=== PATIENT | male | born 1945 | race Two or more races ===

== ENCOUNTER → 2017-05-15 | Outpatient (CLI) | payer MEDICARE, OTHER ==
--- NOTE | 2017-05-15 13:31 | RADIOLOGY REPORT (SQ) ---
EXAM DESCRIPTION: CT ABD/PELVIS COMBO COMPLETED DATE/TIME: 05/15/2017 10:01 am REASON FOR STUDY: HEMATURIA (R31.9) R31.9 HEMATURIA, UNSPECIFIED COMPARISON: None. TECHNIQUE: CT scan of the abdomen and pelvis performed with and without intravenous contrast, and wi thout oral contrast. Contrasted imaging performed helical scanning technique and dynamic intravenous contrast injection. Images reviewed with lung, soft tissue, and bone windows. Reconstructed coronal a nd sagittal MPR images reviewed. Delayed images for evaluation of the urinary system also acquired. A ll images stored on PACS. All CT scanners at this facility use dose modulation, iterative reconstruction, and/or weight based d osing when appropriate to reduce radiation dose to as low as reasonably achievable (ALARA). [facility]: Dose Right [facility]: CareDose [facility]: Dose Right [facility]: Teradose 4D [facility]: Audacious CONTRAST TYPE AND DOSE: contrast/concentration: Isovue 370.00 mg/ml; Total Contrast Delivered: 70.0 ml; Total Saline Delivered: 66.0 ml 70 cc Isovue 370- low osmolar. RENAL FUNCTION: Creatinine 1.1 RADIATION DOSE: Up-to-date CT equipment and radiation dose reduction techniques were employed. CTDIv ol: 9.0 mGy. DLP: 1851 mGy-cm. . LIMITATIONS: None. FINDINGS: NON-CONTRASTED IMAGING: Bilateral renal vascular calcification. No nephrolithiasis. No b ladder calcification POST-CONTRASTED IMAGING: LOWER CHEST: Emphysematous change. Pleural-based scar anteriorly left base. LIVER: Normal size. No masses. No dilated ducts. SPLEEN: Normal size. No focal lesions. PANCREAS: No masses. No significant calcifications. No adjacent inflammation or peripancreatic fluid collections. Pancreatic duct not dilated. GALLBLADDER: No identified stones by CT criteria. No inflammatory changes to suggest cholecystitis. ADRENAL GLANDS: No significant masses or asymmetry. RIGHT KIDNEY AND URETER: No solid masses. No significant calcifications. No hydronephrosis or hyd roureter. LEFT KIDNEY AND URETER: No solid masses. No significant calcifications. No hydronephrosis or hydr oureter. AORTA AND VESSELS: Status post trip plate repair knee is ago. Persistent opacified 3 cm left iliac a rtery aneurysm distal to the graft. Larger right iliac aneurysm bypass with the graft. RETROPERITONEUM: No retroperitoneal adenopathy, hemorrhage or masses. BOWEL AND PERITONEAL CAVITY: No masses or inflammatory changes. No free fluid or peritoneal masses. APPENDIX: Normal. PELVIS: No mass. No free fluid. Normal bladder. ABDOMINAL WALL: No masses. No hernias. BONES: No significant or acute findings. OTHER: No other significant finding. IMPRESSION: No significant renal or bladder pathology. Status post old to play bypass grafting. Pa tent left iliac artery aneurysm distal to the graft. Larger right iliac aneurysm bypass with the pre vious graft. TECHNICAL DOCUMENTATION: JOB ID: [id number] Quality ID # [id number]: Final reports with documentation of one or more dose reduction techniques (e.g., Au tomated exposure control, adjustment of the mA and/or kV according to patient size, use of iterative reconstruction technique) 2010 [employer]- All Rights Reserved
== END ==
LOC: RAD 09:09
PROVIDERS: ATTEND Urology
DX: R31.9 Hematuria, unspecified (principal)
CPT/HCPCS: 74178; 82565

== ENCOUNTER 2018-01-02 12:58 | Emergency (ER) | payer MEDICARE, OTHER ==
[2018-01-02] MEDS ORDERED: ASPIRIN 81 MG TABLET, CHEWABLE PO ONE (13:11)
[2018-01-02 13:31] LABS: ABSOLUTE BASOPHILS # (AUTO) 0.1 10^3/uL (0.0-0.2); ABSOLUTE EOSINOPHILS # (AUTO) 0.5 10^3/uL (0.0-0.6); ABSOLUTE MONOCYTES (AUTO) 0.5 10^3/uL (0.1-1.4); ABSOLUTE NEUT (AUTO) 3.4 10^3/uL (1.7-8.2); BASOPHILS % (AUTO) 1.1 % (0-2); EOSINOPHILS % (AUTO) 7.3 % (0-6); HEMOGLOBIN 13.7 g/dL (13.5-17.0); LYMPHOCYTES % (AUTO) 31.2 % (13-45); MEAN CORPUSCULAR HEMOGLOBIN 32.8 pg (27.0-33.4); MEAN CORPUSCULAR HGB CONC 34.3 g/dL (32.0-36.0); MEAN CORPUSCULAR VOLUME 96 fl (80-97); MONOCYTES % (AUTO) 8.2 % (3-13); PLATELET COUNT 121 10^3/uL (150-450); RED BLOOD COUNT 4.17 10^6/uL (4.35-5.55); RED CELL DISTRIBUTION WIDTH 13.5 % (11.5-14.0); SEGMENTED NEUTROPHILS % (AUTO) 52.2 % (42-78); TOTAL CELLS COUNTED % (AUTO) 100 %; WHITE BLOOD COUNT 6.5 10^3/uL (4.0-10.5)
[2018-01-02 13:53] LABS: ALANINE AMINOTRANSFERASE 37 U/L (21-72); ALBUMIN 4.4 g/dL (3.5-5.0); ALKALINE PHOSPHATASE 71 U/L (38-126); ANION GAP 10 (5-19); ASPARTATE AMINO TRANSFERASE 33 U/L (17-59); BILIRUBIN,DIRECT 0.4 mg/dL (0.0-0.4); BILIRUBIN,TOTAL 0.5 mg/dL (0.2-1.3); BLOOD UREA NITROGEN 33 mg/dL (7-20); CALCIUM 9.7 mg/dL (8.4-10.2); CARBON DIOXIDE 27 mmol/L (22-30); CHLORIDE 104 mmol/L (98-107); CREATINE KINASE 65 U/L (55-170); GLUCOSE 96 mg/dL (75-110); POTASSIUM 5.8 mmol/L (3.6-5.0); TOTAL PROTEIN 7.9 g/dL (6.3-8.2)
--- NOTE | 2018-01-02 14:03 | RADIOLOGY REPORT (SQ) ---
EXAM DESCRIPTION: CHEST SINGLE VIEW COMPLETED DATE/TIME: 01/02/2018 1:49 pm REASON FOR STUDY: cp COMPARISON: December 2013 EXAM PARAMETERS: NUMBER OF VIEWS: One view. TECHNIQUE: Single frontal radiographic view of the chest acquired. RADIATION DOSE: NA LIMITATIONS: None. FINDINGS: LUNGS AND PLEURA: No opacities, masses or pneumothorax. No pleural effusion. MEDIASTINUM AND HILAR STRUCTURES: No masses. Contour normal. HEART AND VASCULAR STRUCTURES: Cardiac silhouette is at the upper limits of normal in size and unchan ged in configuration. BONES: No acute findings. HARDWARE: Patient is status post median sternotomy. OTHER: No other significant finding. IMPRESSION: NO ACUTE RADIOGRAPHIC FINDING IN THE CHEST. TECHNICAL DOCUMENTATION: JOB ID: [id number] [employer]- All Rights Reserved Reading location - IP/workstation name: [email or web address]
[2018-01-02 14:15] LABS: CREATINE KINASE MB 1.28 ng/mL (<4.55); TROPONIN I 0.019 ng/mL
--- NOTE | 2018-01-02 14:31 | ER Document Report ---
ED Cardiac <WENDY MACIAS - Last Filed: 01/02/18 19:30> - General Mode of Arrival: Ambulatory Information source: Patient TRAVEL OUTSIDE OF THE [place]. 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 Patient states he saw his hospitality house supervisor approximately 1 week ago complaining of his heart intermittently stopping. Patient states he was then placed on a Holter Monitor and turned it in on 12/31/2017. Patient states he then received a phone call this morning and was directed to come to the emergency department, reporting he was told he needs a pacemaker. Patient is currently on Coumadin, Finasteride, and Flomax. Patient reports being instructed to stop Flomax due to having scheduled cataract surgery in January. (BRODIE JIMENEZ) - Related Data Allergies/Adverse Reactions: No Known Allergies Allergy (Unverified 10/25/11 12:13) Past Medical History - General Information source: Patient - Social History Smoking Status: Current Every Day Smoker Cigarette use (# per day): Yes - 12 cigs per day Chew tobacco use (# tins/day): - 30 Frequency of alcohol use: Social - 2-3 beers per week Drug Abuse: None Family History: CAD, Hypertension Patient has suicidal ideation: No Patient has homicidal ideation: No - Past Medical History Cardiac Medical History: Reports: Hx Coronary Artery Disease, Hx Hypercholesterolemia, Hx Hypertension Pulmonary Medical History: Reports: Hx COPD Musculoskeltal Medical History: Reports Hx Arthritis, Reports Hx Musculoskeletal Trauma Skin Medical History: Reports Hx Cellulitis, Reports Hx MRSA Traumatic Medical History: Reports: Hx Fractures Past Surgical History: Reports: Hx Cardiac Surgery - bypass, stents, mechanical valve, Hx Carotid Endarterectomy, Hx Cholecystectomy, Hx Coronary Artery Bypass Graft, Hx Orthopedic Surgery - left hip - Immunizations Immunizations up to date: Yes Hx Diphtheria, Pertussis, Tetanus Vaccination: Yes Hx Pneumococcal Vaccination: 08/06/10 <BRODIE JIMENEZ - Last Filed: 01/02/18 21:18> Review of Systems - Review of Systems Constitutional: No symptoms reported EENT: No symptoms reported Cardiovascular: See HPI Respiratory: No symptoms reported Gastrointestinal: No symptoms reported Genitourinary: No symptoms reported Male Genitourinary: No symptoms reported Musculoskeletal: No symptoms reported Skin: No symptoms reported Hematologic/Lymphatic: No symptoms reported Neurological/Psychological: No symptoms reported -: Yes All other systems reviewed and negative <BRODIE JIMENEZ - Last Filed: 01/02/18 21:18> Physical Exam - General General appearance: Appears well, Alert In distress: None - HEENT Head: Normocephalic, Atraumatic Eyes: Normal Conjunctiva: Normal Extraocular movements intact: Yes Pupils: PERRL Mucous membranes: Normal Neck: Normal. No: Carotid bruit - Respiratory Respiratory status: No respiratory distress Chest status: Nontender Breath sounds: Rhonchi - minimal amount of rhnochi with cough Chest palpation: Normal - Cardiovascular Rhythm: Bradycardia Heart sounds: Normal auscultation - mechanical click auscltated consistent with history Murmur: No Friction rub: No Gallop: None auscultated - Abdominal Inspection: Normal Distension: No distension Bowel sounds: Normal Tenderness: Nontender Organomegaly: No organomegaly - Back Back: Normal - Extremities General upper extremity: Normal ROM General lower extremity: Normal ROM. No: Edema - Neurological Neuro grossly intact: Yes Cognition: Normal Orientation: AAOx4 Ana M Coma Scale Eye Opening: Spontaneous [place] Coma Scale Verbal: Oriented Ana M Coma Scale Motor: Obeys Commands Ana M Coma Scale Total: 15 Speech: Normal - Psychological Associated symptoms: Normal affect, Normal mood - Skin Skin Temperature: Warm Skin Moisture: Dry Skin Color: Normal <BRODIE JIMENEZ - Last Filed: 01/02/18 21:18> - Vital signs Vitals: Resp 26 H 01/02/18 13:09 Course - Laboratory Result Diagrams: 01/02/18 13:15 01/02/18 13:15 - Diagnostic Test Radiology reviewed: Reports reviewed - Chest x-ray does not show acute process - EKG Interpretation by [place] EKG shows normal: Sinus rhythm, [place], Intervals, QRS Complexes, ST-T Waves Rate: Normal - 55 Rhythm: A.Flutter [place]/QRS: RBBB, LAHB/LAFB Voltage: Consistant with LVH When compared to previous EKG there are: Changes noted - Atrial flutter was not present for years ago <WENDY MACIAS - Last Filed: 01/02/18 19:30> - Laboratory Result Diagrams: 01/02/18 13:15 01/02/18 13:15 <BRODIE JIMENEZ - Last Filed: 01/02/18 21:18> - Re-evaluation Re-evalutation: 01/02/18 15:03 I discussed the case with Dr. Marques. He already talked with [facility] and Dr. Holguin and they are expecting a call for me to transfer the patient. The patient had a Holter monitor for 2 weeks because he had noted that he would have long pauses in his heartbeat based on hearing the valve clicking. The two-week monitor showed 292 episodes of pauses with the longest being 5.5 seconds. He was also noted to be in atrial flutter the entire time. Patient's potassium is 5.8 today, it was 5.64 years ago when he came in with an NSTEMI, and it was 5.36 years ago when he was seen here. Dr. Marques recommended to give the patient Kayexalate at this time. 01/02/18 15:16 The patient had an echocardiogram here in 2014 showing an EF of 51%. He does not take any diuretics. 01/02/18 15:17 Talk with [facility], and Dr. Willy Holguin will be the accepting on the Intal form and they will call back when they have a bed available. 01/02/18 16:29 The patient's INR is 1.94, he takes Coumadin 4 mg on Sunday and 8 mg today. He has not had today's dose. He will be given the Coumadin 8 mg evening dose now. 01/02/18 19:29 Transport is here for the patient. His vital signs have remained stable. He is anxious to get out of here and get to [place] to have his pacemaker and return back home. (WENDY MACIAS) - Vital Signs Vital signs: Temp Pulse Resp BP Pulse Ox 98.7 F 15 144/63 H 95 01/02/18 13:10 01/02/18 19:34 01/02/18 19:34 01/02/18 19:34 - Laboratory Laboratory results interpreted by me: 01/02/18 01/02/18 01/02/18 13:15 13:15 13:15 RBC 4.17 L Plt Count 121 L Eosinophils % 7.3 H PT 23.1 H Potassium 5.8 H BUN 33 H Creatinine 1.43 H Est GFR ( Amer) 59 L Est GFR (Non-Af Amer) 49 L Critical Care Note - Critical Care Note Total time excluding time spent on procedures (mins): 35 <WENDY MACIAS - Last Filed: 01/02/18 19:30> Discharge <WENDY MACIAS - Last Filed: 01/02/18 19:30> <BRODIE JIMENEZ - Last Filed: 01/02/18 21:18> - Discharge Clinical Impression: Asystole, Hyperkalemia Atrial flutter Qualifiers: Atrial flutter type: unspecified Qualified Code(s): I48.92 - Unspecified atrial flutter Condition: Stable Disposition: [facility] Scribe Attestation: 01/02/18 16:10 I personally performed the services described in the documentation, reviewed and edited the documentation which was dictated to the scribe in my presence, and it accurately records my words and actions. (WENDY MACIAS) Scribe Documentation - Scribe Written by Andresibe:: Azalia Vasquez, 01/02/2018 14:54 acting as scribe for :: Toya <BRODIE JIMENEZ - Last Filed: 01/02/18 21:18>
[2018-01-02 15:01] LABS: INTERNATIONAL RATION (INR) 1.94; PROTHROMBIN TIME 23.1 SEC (11.4-15.4)
[2018-01-02] MEDS ORDERED: SODIUM POLYSTYRENE SULFONATE 15 GM/60 ML PO ONE (15:06)
[2018-01-02] MEDS ORDERED: NORMAL SALINE 1000 ML 250 ML IV ONE (15:17)
[2018-01-02 16:11] VITALS: BP 144/63
[2018-01-02] MEDS ORDERED: WARFARIN SODIUM 1 MG TABLET PO ONE (16:28)
[2018-01-02] MEDS ORDERED: WARFARIN SODIUM 4 MG TABLET PO ONE (17:00)
--- NOTE | 2018-01-02 23:18 | EKG REPORT ---
SEVERITY:- ABNORMAL ECG - A-FLUTTER W/ VARIED AV BLOCK, A-RATE 217 VENTRICULAR PREMATURE COMPLEX RBBB AND LAFB LEFT VENTRICULAR HYPERTROPHY : Confirmed by: Lavern Bolanos 02-Jan-2018 23:17:31
== END 2018-01-02 19:34 | disposition short-term general hospital (02) ==
LOC: ER 12:58
DX: I46.9 Cardiac arrest, cause unspecified (principal); E87.5 Hyperkalemia; I48.92 Unspecified atrial flutter; R07.9 Chest pain, unspecified; F17.210 Nicotine dependence, cigarettes, uncomplicated; I25.10 Atherosclerotic heart disease of native coronary artery without angina pectoris; I10 Essential (primary) hypertension; J44.9 Chronic obstructive pulmonary disease, unspecified; I25.2 Old myocardial infarction; Z79.02 Long term (current) use of antithrombotics/antiplatelets
CPT/HCPCS: 93005; 99291; 96360; 96361; 36415; 82553; 82550; 85025; 85610; 80053; 84484; 71045; 93010; A9270 ×2; J7030; J3490

== ENCOUNTER 2018-01-05 10:34 | Emergency (ER) | payer MEDICARE, OTHER ==
[2018-01-05] MEDS ORDERED: ASPIRIN 81 MG TABLET, CHEWABLE PO ONE (11:00)
--- NOTE | 2018-01-05 11:00 | ER Document Report ---
ED Dizziness/Weakness - General Mode of Arrival: Ambulatory Information source: Patient TRAVEL OUTSIDE OF THE [place] IN LAST 30 DAYS: No <ANDREA MONTEZ - Last Filed: 01/05/18 19:37> <PETTY PRO - Last Filed: 01/05/18 19:55> - General Chief Complaint: Weakness Stated Complaint: WEAKNESS Time Seen by Provider: 01/05/18 10:47 Notes: Patient is a 72 year old male that presents to the emergency department today with complaints of generalized weakness beginning yesterday. Patient was discharged from [facility] yesterday after being cardioverted for atrial flutter. Patient states on discharge he felt fine but as the night went on he began to feel generally weak. Patient states he used a cane to walk because he was wobbly when standing. Patient states when he woke up this morning he was lightheaded with a blood pressure of 90/70. Patient complains of blurry vision which he states is chronic. Patient denies any abdominal pain , numbness, tingling, focal neurological deficits, chest pain, shortness of breath, headaches, sore throat, earaches, nausea, or vomiting. (ANDREA MONTEZ) - Related Data Allergies/Adverse Reactions: No Known Allergies Allergy (Unverified 10/25/11 12:13) Past Medical History - General Information source: Patient - Social History Smoking Status: Current Every Day Smoker Cigarette use (# per day): Yes Frequency of alcohol use: Social Drug Abuse: None Lives with: Family Family History: CAD, Hypertension Patient has suicidal ideation: No Patient has homicidal ideation: No - Past Medical History Cardiac Medical History: Reports: Hx Coronary Artery Disease, Hx Hypercholesterolemia, Hx Hypertension Pulmonary Medical History: Reports: Hx COPD Musculoskeltal Medical History: Reports Hx Arthritis, Reports Hx Musculoskeletal Trauma Skin Medical History: Reports Hx Cellulitis, Reports Hx MRSA Traumatic Medical History: Reports: Hx Fractures Past Surgical History: Reports: Hx Cardiac Surgery - bypass, stents, mechanical valve, Hx Carotid Endarterectomy, Hx Cholecystectomy, Hx Coronary Artery Bypass Graft, Hx Orthopedic Surgery - left hip - Immunizations Immunizations up to date: Yes Hx Diphtheria, Pertussis, Tetanus Vaccination: Yes Hx Pneumococcal Vaccination: 08/06/10 <ANDREA MONTEZ - Last Filed: 01/05/18 19:37> - Social History Cigarette use (# per day): Yes - 1ppd <SALMAROCIOPETTY - Last Filed: 01/05/18 19:55> Review of Systems - Review of Systems Constitutional: See HPI, Weakness - generalized EENT: denies: Ear pain, Throat pain Cardiovascular: denies: Chest pain Respiratory: denies: Short of breath Gastrointestinal: denies: Abdominal pain, Nausea, Vomiting Genitourinary: No symptoms reported Male Genitourinary: No symptoms reported Musculoskeletal: No symptoms reported Skin: No symptoms reported Hematologic/Lymphatic: No symptoms reported Neurological/Psychological: denies: Headaches, Numbness, Tingling -: Yes All other systems reviewed and negative <ANDREA MONTEZ - Last Filed: 01/05/18 19:37> Physical Exam <ANDREA MONTEZ - Last Filed: 01/05/18 19:37> <PETTY PRO - Last Filed: 01/05/18 19:55> - Vital signs Vitals: BP Pulse Ox 129/64 H 98 01/05/18 10:38 01/05/18 10:38 - Notes Notes: PHYSICAL EXAM GENERAL: Alert, interacts well. No acute distress. HEAD: Normocephalic, atraumatic. EYES: Pupils equal, round, and reactive to light. Extraocular movements intact. ENT: Oral mucosa moist, tongue midline. NECK: Full range of motion. Supple. Trachea midline. LUNGS: Clear to auscultation bilaterally, no wheezes, rales, or rhonchi. No respiratory distress. HEART: Regular rate and rhythm. No murmurs, gallops, or rubs. Audible mechanical click consistent with history of artificial valve. ABDOMEN: Soft, non-tender. Non-distended. Bowel sounds present in all 4 quadrants. No guarding, rigidity, or rebound. Scarring consistent with surgical history. EXTREMITIES: Moves all 4 extremities spontaneously. No edema, radial and dorsalis pedis pulses 2/4 bilaterally. No cyanosis. NEUROLOGICAL: Alert and oriented x3. Normal speech. PSYCH: Normal affect, normal mood. SKIN: Warm, dry, normal turgor. No rashes or lesions noted. (ANDREA MONTEZ) Course - Laboratory Result Diagrams: 01/05/18 10:04 01/05/18 16:35 <ANDREA MONTEZ - Last Filed: 01/05/18 19:37> - Laboratory Result Diagrams: 01/05/18 10:04 01/05/18 16:35 <PETTY PRO - Last Filed: 01/05/18 19:55> - Re-evaluation Re-evalutation: 01/05/18 19:43 CBC shows slightly low platelets at 121, INR is slightly subtherapeutic at 2.06 for the mechanical valve, potassium mildly elevated at 5.2, there is acute on chronic renal failure with a BUN of 36 and creatinine of 2.65, calcium slightly elevated at 10.5, indeterminate troponin at 0.104, urinalysis shows moderate leukocyte esterase but no bacteria. There are 3 squamous epithelial cells. Doubt urinary tract infection at this time. This will be sent for culture. Discussed with patient that since he was recently cardioverted the indeterminate troponin could be a leak from the cardioversion and I agreed to hydrate him to see if the renal function improved or if the troponin improved however when these labs were repeated 6 hours later the patient had essentially unchanged renal function and his troponin had quadrupled it was now positive at 0.44. EKG remains nonischemic. I did call and discuss this patient with Dr. Schofield at [facility] who agrees to accept the patient to his service as a non-STEMI. Patient is generally hemodynamically stable, he does become somewhat hypotensive when he gets up and walks around, he is encouraged to stay seated. He is remained chest pain-free this entire time. 01/05/18 19:43 01/05/18 19:53 Potassium decreased with sodium as well. (PETTY PRO) - Vital Signs Vital signs: Temp Pulse Resp BP Pulse Ox 97.9 F 81 24 H 119/60 96 01/05/18 18:08 01/05/18 10:46 01/05/18 19:01 01/05/18 19:01 01/05/18 19:01 - Laboratory Laboratory results interpreted by me: 01/05/18 01/05/18 01/05/18 10:04 10:04 10:04 Plt Count 121 L PT 24.2 H Potassium 5.2 H BUN 36 H Creatinine 2.65 H Est GFR ( Amer) 29 L Est GFR (Non-Af Amer) 24 L Glucose 167 H Calcium 10.5 H Direct Bilirubin 0.5 H Total Protein 8.3 H Urine Protein Urine Blood Urine Urobilinogen Ur Leukocyte Esterase 01/05/18 01/05/18 15:48 16:35 Plt Count PT Potassium BUN 36 H Creatinine 2.34 H Est GFR ( Amer) 33 L Est GFR (Non-Af Amer) 28 L Glucose 136 H Calcium Direct Bilirubin Total Protein Urine Protein 30 H Urine Blood SMALL H Urine Urobilinogen 2.0 H Ur Leukocyte Esterase MODERATE H - EKG Interpretation by Me Additional EKG results interpreted by me: 01/05/18 19:51 Initial EKG shows sinus rhythm with multiple PVCs, right bundle branch block, left anterior hemiblock, LVH, no ST segment elevations, there are ST segment depressions in V3, inverted T waves in 1, aVL, V2 which are unchanged from prior recent EKG Repeat EKG shows sinus rhythm at a rate of 95, no PVCs, left anterior hemiblock , right bundle branch block, unchanged T-wave inversions in 1, aVL, V1 through the 3, no ST segment depressions remain per my interpretation. (PETTY PRO) Discharge <ANDREA MONTEZ - Last Filed: 01/05/18 19:37> <PETTY PRO - Last Filed: 01/05/18 19:55> - Discharge Clinical Impression: NSTEMI (non-ST elevated myocardial infarction), Hyperkalemia Acute on chronic renal failure Qualifiers: Acute renal failure type: unspecified Chronic kidney disease stage: stage 3 ( moderate) Qualified Code(s): N17.9 - Acute kidney failure, unspecified; N18.3 - Chronic kidney disease, stage 3 (moderate); N18.3 - Chronic kidney disease, stage 3 (moderate) Condition: Fair Disposition: [facility] Forms: Special Work Note Referrals: PAULINE RIVERA MD [Primary Care Provider] - Follow up as needed Scribe Attestation: 01/05/18 19:52 I personally performed the services described in the documentation, reviewed and edited the documentation which was dictated to the scribe in my presence, and it accurately records my words and actions. (PETTY PRO) Scribe Documentation - Scribe Written by Scribe:: Azalia Hernandez, 01/05/2018 1324 acting as scribe for Dr.:: Ramsey <ANDREA MONTEZ - Last Filed: 01/05/18 19:37>
[2018-01-05 11:19] LABS: INTERNATIONAL RATION (INR) 2.06; PROTHROMBIN TIME 24.2 SEC (11.4-15.4)
--- NOTE | 2018-01-05 11:24 | RADIOLOGY REPORT (SQ) ---
EXAM DESCRIPTION: CHEST SINGLE VIEW COMPLETED DATE/TIME: 01/05/2018 11:10 am REASON FOR STUDY: weakness COMPARISON: 01/02/2018 NUMBER OF VIEWS: One view. TECHNIQUE: Single frontal radiographic view of the chest acquired. LIMITATIONS: None. FINDINGS: LUNGS AND PLEURA: No new opacities, masses or pneumothorax. No pleural effusion. Attenuate d blood vessels and flattened ede-diaphragms. MEDIASTINUM AND HILAR STRUCTURES: No masses. Contour normal. HEART AND VASCULAR STRUCTURES: Heart stable in size. Normal vasculature. BONES: No acute findings. HARDWARE: Stable. OTHER: No other significant finding. IMPRESSION: COPD. NO ACUTE RADIOGRAPHIC FINDING IN THE CHEST OR SIGNIFICANT CHANGE FROM PRIOR STUDY . TECHNICAL DOCUMENTATION: JOB ID: [id number] [employer]- All Rights Reserved Reading location - IP/workstation name: [email or web address]
[2018-01-05 11:26] LABS: ABSOLUTE BASOPHILS # (AUTO) 0.1 10^3/uL (0.0-0.2); ABSOLUTE EOSINOPHILS # (AUTO) 0.2 10^3/uL (0.0-0.6); ABSOLUTE LYMPHOCYTES (AUTO) 1.5 10^3/uL (0.5-4.7); ABSOLUTE MONOCYTES (AUTO) 0.5 10^3/uL (0.1-1.4); ABSOLUTE NEUT (AUTO) 4.9 10^3/uL (1.7-8.2); BASOPHILS % (AUTO) 0.9 % (0-2); EOSINOPHILS % (AUTO) 2.2 % (0-6); HEMATOCRIT 43.5 % (37.9-51.0); HEMOGLOBIN 14.9 g/dL (13.5-17.0); LYMPHOCYTES % (AUTO) 21.1 % (13-45); MEAN CORPUSCULAR HEMOGLOBIN 32.5 pg (27.0-33.4); MEAN CORPUSCULAR HGB CONC 34.1 g/dL (32.0-36.0); MEAN CORPUSCULAR VOLUME 95 fl (80-97); MONOCYTES % (AUTO) 7.1 % (3-13); PLATELET COUNT 121 10^3/uL (150-450); RED BLOOD COUNT 4.58 10^6/uL (4.35-5.55); RED CELL DISTRIBUTION WIDTH 13.3 % (11.5-14.0); SEGMENTED NEUTROPHILS % (AUTO) 68.7 % (42-78); TOTAL CELLS COUNTED % (AUTO) 100 %; WHITE BLOOD COUNT 7.1 10^3/uL (4.0-10.5)
[2018-01-05 12:14] LABS: ALANINE AMINOTRANSFERASE 34 U/L (21-72); ALBUMIN 4.7 g/dL (3.5-5.0); ALKALINE PHOSPHATASE 79 U/L (38-126); ANION GAP 16 (5-19); ASPARTATE AMINO TRANSFERASE 36 U/L (17-59); BILIRUBIN,DIRECT 0.5 mg/dL (0.0-0.4); BILIRUBIN,TOTAL 0.7 mg/dL (0.2-1.3); BLOOD UREA NITROGEN 36 mg/dL (7-20); CALCIUM 10.5 mg/dL (8.4-10.2); CARBON DIOXIDE 24 mmol/L (22-30); CHLORIDE 101 mmol/L (98-107); CREATINE KINASE 83 U/L (55-170); GLUCOSE 167 mg/dL (75-110); POTASSIUM 5.2 mmol/L (3.6-5.0); SODIUM 141.3 mmol/L (137-145); TOTAL PROTEIN 8.3 g/dL (6.3-8.2)
[2018-01-05 12:25] LABS: CREATINE KINASE MB 2.44 ng/mL (<4.55)
[2018-01-05 12:30] LABS: TROPONIN I 0.104 ng/mL
[2018-01-05] MEDS ORDERED: NORMAL SALINE 1000 ML 1,000 ML IV ONE (13:03)
[2018-01-05 16:46] LABS: AMORPHOUS SEDIMENT,URINE TRACE /HPF; APPEARANCE,URINE CLOUDY; BILIRUBIN,URINE NEGATIVE (NEGATIVE); COLOR,URINE AMBER; GLUCOSE, URINE NEGATIVE (NEGATIVE); KETONES,URINE NEGATIVE (NEGATIVE); LEUKOCYTE ESTERASE,URINE MODERATE (NEGATIVE); NITRITE,URINE NEGATIVE (NEGATIVE); PROTEIN,URINE 30 mg/dL (NEGATIVE); URINE SPECIFIC GRAVITY 1.018
[2018-01-05 17:26] LABS: ANION GAP 14 (5-19); BLOOD UREA NITROGEN 36 mg/dL (7-20); CALCIUM 9.5 mg/dL (8.4-10.2); CARBON DIOXIDE 26 mmol/L (22-30); CHLORIDE 103 mmol/L (98-107); GLUCOSE 136 mg/dL (75-110); POTASSIUM 4.5 mmol/L (3.6-5.0); SODIUM 143.2 mmol/L (137-145)
--- NOTE | 2018-01-05 17:34 | EKG REPORT ---
SEVERITY:- ABNORMAL ECG - A FIB RIGHT BUNDLE BRANCH BLOCK LVH WITH IVCD AND SECONDARY REPOL ABNRM : Confirmed by: Lavern Bolanos 05-Jan-2018 17:33:56
[2018-01-05 19:12] VITALS: BP 119/60
[2018-01-05] MEDS ORDERED: ATORVASTATIN CALCIUM 20 MG TABLET PO ONE (20:09)
[2018-01-05] MEDS ORDERED: LISINOPRIL 10 MG TABLET PO ONE (20:10)
[2018-01-05] MEDS ORDERED: PANTOPRAZOLE SODIUM 40 MG VIAL IV ONE (20:11)
[2018-01-05] MEDS ORDERED: MELATONIN 3 MG TABLET PO ONE (20:12)
--- NOTE | 2018-01-06 08:27 | EKG REPORT ---
SEVERITY:- ABNORMAL ECG - SINUS RHYTHM RIGHT BUNDLE BRANCH BLOCK LVH WITH IVCD AND SECONDARY REPOL ABNRM : Confirmed by: Lavern Bolanos 06-Jan-2018 08:26:12
== END 2018-01-05 22:10 | disposition short-term general hospital (02) ==
LOC: ER 10:34
DX: I21.4 Non-ST elevation (NSTEMI) myocardial infarction (principal); E87.5 Hyperkalemia; I12.9 Hypertensive chronic kidney disease with stage 1 through stage 4 chronic kidney disease, or unspecified chronic kidney disease; N18.3 Chronic kidney disease, stage 3 (moderate); N17.9 Acute kidney failure, unspecified; I45.10 Unspecified right bundle-branch block; R53.1 Weakness; R42 Dizziness and giddiness; H53.8 Other visual disturbances; I25.10 Atherosclerotic heart disease of native coronary artery without angina pectoris; J44.9 Chronic obstructive pulmonary disease, unspecified; F17.210 Nicotine dependence, cigarettes, uncomplicated; Z98.890 Other specified postprocedural states; Z95.1 Presence of aortocoronary bypass graft; Z95.2 Presence of prosthetic heart valve; I49.3 Ventricular premature depolarization
CPT/HCPCS: 93005; 99285; 96361; 96374; 36415; 87086; 82553; 82550; 85025; 85610; 80048; 80053; 81001; 84484; 71045; 93010; A9270 ×2; C9113; J7030; S0164

== ENCOUNTER 2018-01-23 10:26 | Day surgery (SDC) | payer MEDICARE, OTHER ==
[~2018-01-23 10:26] MED LIST: BESIFLOXACIN HCL 0.6% OPH SUSP 5 ML BOTTLE OD PRN; CHONDR SU A NA/HYALUR INTRAOC KIT (SURGICARE) ONE; CYCLOPENTOLATE 0.2%/PHENYLEPHRINE 1% OPH SOLN 2 ML OD PRN; EPINEPHRINE INJ/PF 1 MG/1 ML AMPULE ONE; KETOROLAC TROMETHAMINE 0.45% 4 DROP/0.4 ML DROPERETTE OD PRN; LIDOCAINE 1% INJ-PF (10 MG/ML) 30 ML SDV ONE; TETRACAINE HCL 0.5% OPH SOLN 0.6 ML DROPERETTE OD PRN; TOBRAMYCIN SULFATE/DEXAMETH OPH OINTMENT 3.5 GM ONE; TROPICAMIDE 1% OPH SOLN 3 ML OD PRN
[2018-01-23] MEDS ORDERED: MIDAZOLAM 2 MG/2 ML INJ ONE (10:39)
[2018-01-23] MEDS: TETRACAINE HCL 0.5% OPH SOLN 0.6 ML DROPERETTE OD PRN ×3 (11:14→11:54)
[2018-01-23] MEDS: CYCLOPENTOLATE 0.2%/PHENYLEPHRINE 1% OPH SOLN 2 ML OD PRN ×3 (11:15→11:38)
[2018-01-23] MEDS: TROPICAMIDE 1% OPH SOLN 3 ML OD PRN ×3 (11:15→11:38)
[2018-01-23] MEDS: BESIFLOXACIN HCL 0.6% OPH SUSP 5 ML BOTTLE OD PRN ×3 (11:16→12:22)
[2018-01-23] MEDS ORDERED: CHONDR SU A NA/HYALUR SOD 0.5 ML DISP.SYRIN ONE (13:55)
== END 2018-01-23 13:07 | disposition home or self-care (01) ==
LOC: SC 10:26
PROVIDERS: ATTEND Ophthalmology
DX: H25.11 Age-related nuclear cataract, right eye (principal); H40.1111 Primary open-angle glaucoma, right eye, mild stage; F17.210 Nicotine dependence, cigarettes, uncomplicated; I10 Essential (primary) hypertension; E03.9 Hypothyroidism, unspecified; M19.90 Unspecified osteoarthritis, unspecified site; J44.9 Chronic obstructive pulmonary disease, unspecified; K21.9 Gastro-esophageal reflux disease without esophagitis; I48.91 Unspecified atrial fibrillation; Z79.01 Long term (current) use of anticoagulants; Z79.899 Other long term (current) drug therapy; Z79.51 Long term (current) use of inhaled steroids; Z79.84 Long term (current) use of oral hypoglycemic drugs
CPT/HCPCS: 0191T; 66984; 142; C1783; J0171; J2250; J3490; V2630

== ENCOUNTER 2018-01-28 08:17 | Emergency (ER) | payer MEDICARE, OTHER ==
[2018-01-28 09:08] LABS: ABSOLUTE BASOPHILS # (AUTO) 0.1 10^3/uL (0.0-0.2); ABSOLUTE EOSINOPHILS # (AUTO) 0.3 10^3/uL (0.0-0.6); ABSOLUTE LYMPHOCYTES (AUTO) 1.6 10^3/uL (0.5-4.7); ABSOLUTE MONOCYTES (AUTO) 0.5 10^3/uL (0.1-1.4); ABSOLUTE NEUT (AUTO) 4.1 10^3/uL (1.7-8.2); HEMATOCRIT 35.8 % (37.9-51.0); HEMOGLOBIN 12.4 g/dL (13.5-17.0); LYMPHOCYTES % (AUTO) 24.4 % (13-45); MEAN CORPUSCULAR HEMOGLOBIN 32.9 pg (27.0-33.4); MEAN CORPUSCULAR HGB CONC 34.6 g/dL (32.0-36.0); MEAN CORPUSCULAR VOLUME 95 fl (80-97); MONOCYTES % (AUTO) 8.1 % (3-13); PLATELET COUNT 133 10^3/uL (150-450); RED BLOOD COUNT 3.77 10^6/uL (4.35-5.55); RED CELL DISTRIBUTION WIDTH 13.5 % (11.5-14.0); SEGMENTED NEUTROPHILS % (AUTO) 62.5 % (42-78); TOTAL CELLS COUNTED % (AUTO) 100 %; WHITE BLOOD COUNT 6.6 10^3/uL (4.0-10.5)
[2018-01-28 09:15] LABS: INTERNATIONAL RATION (INR) 1.57; PROTHROMBIN TIME 19.5 SEC (11.4-15.4)
[2018-01-28 09:24] LABS: ALANINE AMINOTRANSFERASE 48 U/L (21-72); ALBUMIN 3.7 g/dL (3.5-5.0); ALKALINE PHOSPHATASE 67 U/L (38-126); ANION GAP 8 (5-19); ASPARTATE AMINO TRANSFERASE 42 U/L (17-59); BILIRUBIN,DIRECT 0.4 mg/dL (0.0-0.4); BILIRUBIN,TOTAL 0.6 mg/dL (0.2-1.3); BLOOD UREA NITROGEN 25 mg/dL (7-20); CALCIUM 9.3 mg/dL (8.4-10.2); CARBON DIOXIDE 26 mmol/L (22-30); CHLORIDE 105 mmol/L (98-107); GLUCOSE 103 mg/dL (75-110); POTASSIUM 4.9 mmol/L (3.6-5.0); SODIUM 138.5 mmol/L (137-145); TOTAL PROTEIN 6.7 g/dL (6.3-8.2)
[2018-01-28 09:47] VITALS: BP 103/53
--- NOTE | 2018-01-28 10:27 | ER Document Report ---
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 Daughter living with him at this time. No head injury or headache. no chest pain, sob, or abdominal pain. NO fever or chills. PCP: dr campbell has appt at 2 pm, today. Tetanus is current. Associated Symptoms: None Exacerbated by: Denies Relieved by: Denies Similar symptoms previously: Yes Recently seen / treated by doctor: No - ROS ROS below otherwise negative: Yes Systems Reviewed and Negative: Yes All other systems reviewed and negative - DERM Skin Color: Normal Past Medical History - General Information source: Patient, Relative - daughter - Social History Smoking Status: Current Every Day Smoker Frequency of alcohol use: Occasional Drug Abuse: None Lives with: Family - daghter Family History: CAD, Hypertension Patient has suicidal ideation: No Patient has homicidal ideation: No - Past Medical History Cardiac Medical History: Reports: Hx Coronary Artery Disease, Hx Hypercholesterolemia, Hx Hypertension Pulmonary Medical History: Reports: Hx COPD Renal/ Medical History: Denies: Hx Peritoneal Dialysis Musculoskeltal Medical History: Reports Hx Arthritis, Reports Hx Musculoskeletal Trauma Skin Medical History: Reports Hx Cellulitis, Reports Hx MRSA Traumatic Medical History: Reports: Hx Fractures Past Surgical History: Reports: Hx Cardiac Surgery - bypass, stents, mechanical valve, Hx Carotid Endarterectomy, Hx Cholecystectomy, Hx Coronary Artery Bypass Graft, Hx Open Heart Surgery - 1998 VALVE REPLACEMENT, Hx Orthopedic Surgery - left hip - Immunizations Immunizations up to date: Yes Hx Diphtheria, Pertussis, Tetanus Vaccination: Yes Hx Pneumococcal Vaccination: 08/06/10 Vertical Provider Document - CONSTITUTIONAL Agree With Documented VS: Yes Exam Limitations: No Limitations General Appearance: No Apparent Distress - INFECTION CONTROL TRAVEL OUTSIDE OF THE [place] IN LAST 30 DAYS: No - HEENT Notes: top endentulous, lower teeth stable. - NECK Neck: Supple - non tender - RESPIRATORY Respiratory: Breath Sounds Normal, No Respiratory Distress - CARDIOVASCULAR Cardiovascular: Regular Rate, Regular Rhythm - GI/ABDOMEN Gastrointestinal: Abdomen Soft, Abdomen Non-Tender, No Organomegaly - MUSCULOSKELETAL/EXTREMETIES Musculoskeletal/Extremeties: MAEW - NEURO Level of Consciousness: Awake, Alert - DERM Integumentary: Laceration - 1.5 cm full thickness with partial healing, wound edges approximated, washed with soap and water, steri strips place Course - Re-evaluation Re-evalutation: 01/28/18 10:26 Labs BUN is 25 creatinine is back down to normal range 1.17. Liver enzymes are normal. CBC is normal. Glucose is 103. INR is 1.57 but his daughter said that it was 2.2 the other day which would be within normal limits for him. The EKG shows first-degree AV block, with PAC. - Vital Signs Vital signs: Temp Pulse Resp BP Pulse Ox 97.2 F 81 103/53 L 100 01/28/18 09:04 01/28/18 09:44 01/28/18 09:44 01/28/18 09:44 - Laboratory Result Diagrams: 01/28/18 08:48 01/28/18 08:48 Laboratory results interpreted by me: 01/28/18 01/28/18 01/28/18 08:48 08:48 08:48 RBC 3.77 L Hgb 12.4 L Hct 35.8 L Plt Count 133 L PT 19.5 H BUN 25 H Discharge - Discharge Clinical Impression: Cut of chin Condition: Good Disposition: HOME, SELF-CARE Instructions: Antibiotic Ointment Protection ([facility]), Care of Steri-Strip Closure ([facility]) Additional Instructions: Keep the Steri-Strips clean and dry The wound will heal Bacitracin See Dr. Campbell for follow-up tomorrow. Referrals: TATIANA CAMPBELL DO [Primary Care Provider] - Follow up tomorrow
--- NOTE | 2018-01-28 12:35 | EKG REPORT ---
SEVERITY:- ABNORMAL ECG - SINUS RHYTHM .MOST LIKELY .BASELINE ARTIFACT.REPEAT EKG. VENTRICULAR PREMATURE COMPLEX FIRST DEGREE AV BLOCK IVCD, CONSIDER ATYPICAL RBBB LVH WITH IVCD AND SECONDARY REPOL ABNRM : Confirmed by: Jeanie Medina MD 28-Jan-2018 12:35:08
== END 2018-01-28 10:40 | disposition home or self-care (01) ==
LOC: ER 08:17
DX: S01.81XA Laceration without foreign body of other part of head, initial encounter (principal); W22.03XA Walked into furniture, initial encounter; I49.1 Atrial premature depolarization; I44.0 Atrioventricular block, first degree; I25.10 Atherosclerotic heart disease of native coronary artery without angina pectoris; I10 Essential (primary) hypertension; J44.9 Chronic obstructive pulmonary disease, unspecified; F17.200 Nicotine dependence, unspecified, uncomplicated; Z95.1 Presence of aortocoronary bypass graft; Z95.5 Presence of coronary angioplasty implant and graft; Z95.2 Presence of prosthetic heart valve
CPT/HCPCS: 36415; 80053; 83735; 85025; 85610; 93005; 93010; 99283

== ENCOUNTER 2018-02-13 11:23 | Day surgery (SDC) | payer MEDICARE, OTHER ==
[~2018-02-13 11:23] MED LIST changes: -BESIFLOXACIN HCL 0.6% OPH SUSP 5 ML BOTTLE OD PRN; -CHONDR SU A NA/HYALUR INTRAOC KIT (SURGICARE) ONE; -CYCLOPENTOLATE 0.2%/PHENYLEPHRINE 1% OPH SOLN 2 ML OD PRN; -EPINEPHRINE INJ/PF 1 MG/1 ML AMPULE ONE; -KETOROLAC TROMETHAMINE 0.45% 4 DROP/0.4 ML DROPERETTE OD PRN; +KETOROLAC TROMETHAMINE 0.45% 4 DROP/0.4 ML DROPERETTE OS PRN; -TETRACAINE HCL 0.5% OPH SOLN 0.6 ML DROPERETTE OD PRN; -TOBRAMYCIN SULFATE/DEXAMETH OPH OINTMENT 3.5 GM ONE; -TROPICAMIDE 1% OPH SOLN 3 ML OD PRN
[2018-02-13] MEDS: CYCLOPENTOLATE 0.2%/PHENYLEPHRINE 1% OPH SOLN 2 ML OS PRN ×3 (11:29→12:00)
[2018-02-13] MEDS: TROPICAMIDE 1% OPH SOLN 3 ML OS PRN ×3 (11:29→12:00)
[2018-02-13] MEDS: BESIFLOXACIN HCL 0.6% OPH SUSP 5 ML BOTTLE OS PRN ×4 (11:30→12:36)
[2018-02-13] MEDS: TETRACAINE HCL 0.5% OPH SOLN 0.6 ML DROPERETTE OS PRN ×3 (11:31→12:05)
[2018-02-13] MEDS ORDERED: ALBUTEROL SULFATE 0.083% NEB 2.5 MG/3 ML AMPUL NEB ONE (11:48)
[2018-02-13] MEDS ORDERED: FENTANYL CITRATE INJ/PF 100 MCG/2 ML AMPUL ONE (12:00)
[2018-02-13] MEDS ORDERED: MIDAZOLAM 2 MG/2 ML INJ ONE ×2 (12:00)
[2018-02-13] MEDS: CHONDR SU A NA/HYALUR INTRAOC KIT (SURGICARE) ONE ×2 (12:16→12:42)
[2018-02-13] MEDS: EPINEPHRINE INJ/PF 1 MG/1 ML AMPULE ONE ×2 (12:16→12:43)
[2018-02-13] MEDS: TOBRAMYCIN SULFATE/DEXAMETH OPH OINTMENT 3.5 GM ONE ×2 (12:35→12:36)
== END 2018-02-13 13:18 | disposition home or self-care (01) ==
LOC: SC 11:23
PROVIDERS: ATTEND Ophthalmology
PROC: 087Y7DZ Dilation of Left Lacrimal Duct with Intraluminal Device, Via Natural or Artificial Opening (ICD-10-PCS; 2018-02-13)
PROC: 08RK3JZ Replacement of Left Lens with Synthetic Substitute, Percutaneous Approach (ICD-10-PCS; principal; 2018-02-13 12:00)
DX: H25.12 Age-related nuclear cataract, left eye (principal); H40.1121 Primary open-angle glaucoma, left eye, mild stage; H57.03 Miosis; I25.10 Atherosclerotic heart disease of native coronary artery without angina pectoris; I48.91 Unspecified atrial fibrillation; I10 Essential (primary) hypertension; Z95.1 Presence of aortocoronary bypass graft; Z79.01 Long term (current) use of anticoagulants; F17.200 Nicotine dependence, unspecified, uncomplicated
CPT/HCPCS: 0191T; 66982; 142; C1783; J0171; J2250; J3010; J3490; V2630

== ENCOUNTER 2018-04-24 19:49 | Emergency (ER) | payer MEDICARE, OTHER ==
[2018-04-24] MEDS ORDERED: IPRATROPIUM/ALBUTEROL 0.5-2.5 MG/3 ML AMPUL NEB ONE ×2 (20:11→20:14)
[2018-04-24] MEDS ORDERED: METHYLPREDNISOLONE INJ 125 MG/2 ML SDV IV ONE (20:11)
--- NOTE | 2018-04-24 20:26 | ER Document Report ---
ED Respiratory Problem - General Chief Complaint: Shortness Of Breath Stated Complaint: SHORTNESS OF BREATH Time Seen by Provider: 04/24/18 20:05 Notes: Patient is a 72-year-old male presenting to the emergency department complaining of shortness of breath. Patient stated he was at home feeling short of breath he put on his home pulse ox which gave him a reading heart rate of 128 and a room air SPO2 of 89%. Patient stated he then took 1 puff of his Ventolin inhaler which did not help anything so he called 911. Per EMS patient was smoking a cigarette upon their arrival. EMS reports putting the patient on nasal cannula 3 L/min and got his SPO2 up to 92%. In the emergency department patient is on 3 L/min O2 and has pulse ox is 96%. Patient is speaking in full sentences without any difficulty asking to be discharged so that he can go home. Patient denies any chest pain, pressure, tightness at any point in time. Patient also denies nausea, vomiting, URI symptoms, fever. Past medical history: GA, CABG, COPD, A. fib, prostate issues Medications: Tamsulosin, atorvastatin, lisinopril, warfarin, albuterol, aspirin , Esomeprazole, finasteride, Uloric Allergies: No known drug allergies Patient admits to smoking cigarettes every day, denies illicit drug use, denies alcohol use. TRAVEL OUTSIDE OF THE [place] IN LAST 30 DAYS: No - Related Data Allergies/Adverse Reactions: No Known Allergies Allergy (Verified 01/28/18 08:20) Past Medical History - Social History Smoking Status: Current Every Day Smoker Frequency of alcohol use: previous heavy drinker Lives with: Alone Family History: CAD, Hypertension Patient has suicidal ideation: No Patient has homicidal ideation: No - Past Medical History Cardiac Medical History: Reports: Hx Coronary Artery Disease, Hx Heart Attack - 8YRS AGO??, Hx Hypercholesterolemia, Hx Hypertension - MEDICATED Denies: Hx Atrial Fibrillation, Hx Congestive Heart Failure, Hx Peripheral Vascular Disease, Hx Heart Murmur Pulmonary Medical History: Reports: Hx COPD Denies: Hx Asthma Neurological Medical History: Denies: Hx Cerebrovascular Accident, Hx Seizures Renal/ Medical History: Denies: Hx Peritoneal Dialysis GI Medical History: Denies: Hx Gastroesophageal Reflux Disease, Hx Hepatitis, Hx Hiatal Hernia, Hx Ulcer Musculoskeletal Medical History: Reports Hx Arthritis, Denies Hx Fibromyalgia, Denies Hx Muscular Dystrophy, Reports Hx Musculoskeletal Trauma Skin Medical History: Reports Hx Cellulitis, Reports Hx MRSA Traumatic Medical History: Reports: Hx Fractures Infectious Medical History: Denies: Hx Hepatitis Past Surgical History: Reports: Hx Cardiac Surgery - bypass, stents, mechanical valve, Hx Carotid Endarterectomy, Hx Cholecystectomy, Hx Coronary Artery Bypass Graft, Hx Open Heart Surgery - 1998 VALVE REPLACEMENT, Hx Orthopedic Surgery - left hip. Denies: Hx Appendectomy, Hx Bowel Surgery, Hx Gastric Bypass Surgery , Hx Herniorrhaphy, Hx Pacemaker, Hx Tonsillectomy - Immunizations Immunizations up to date: Yes Hx Diphtheria, Pertussis, Tetanus Vaccination: Yes Hx Pneumococcal Vaccination: 08/06/10 Review of Systems - Review of Systems Constitutional: See HPI EENT: No symptoms reported Cardiovascular: See HPI Respiratory: See HPI Gastrointestinal: No symptoms reported Genitourinary: No symptoms reported Male Genitourinary: No symptoms reported Musculoskeletal: No symptoms reported Skin: No symptoms reported Hematologic/Lymphatic: No symptoms reported Neurological/Psychological: No symptoms reported Physical Exam - Vital signs Vitals: Resp Pulse Ox 28 H 91 L 04/24/18 19:56 04/24/18 19:56 - Notes Notes: GENERAL: Alert, interacts well. No acute distress. HEAD: Normocephalic, atraumatic. EYES: Pupils equal, round, and reactive to light. Extraocular movements intact. ENT: Oral mucosa moist, tongue midline. NECK: Full range of motion. Supple. Trachea midline. LUNGS: Diminished lung sounds bilateral bases, expiratory wheeze in apices bilaterally. no rales, or rhonchi. No respiratory distress, speaking in full sentences HEART: Regular rate and rhythm. No murmur ABDOMEN: Soft, non-tender. Non-distended. Bowel sounds present in all 4 quadrants. EXTREMITIES: Moves all 4 extremities spontaneously. No edema, normal radial and dorsalis pedis pulses bilaterally. No cyanosis. BACK: no cervical, thoracic, lumbar midline tenderness. No saddle anesthesia, normal distal neurovascular exam. NEUROLOGICAL: Alert and oriented x3. Normal speech. . PSYCH: Normal affect, normal mood. SKIN: Warm, dry, normal turgor. No rashes or lesions noted. Course - Re-evaluation Re-evalutation: Discussed pt. presention with Dr. Johnson who agrees to admit due to Pt. desatting to 88% upon ambulation. Per RN the Pt. was also "not steady on his feet." CXR shows PNA, treated for same. Pt agrees to admit. Dr. Johnson came down to see the pt. who then stated the Pt wanted to be d/neha. Alex stated that the pt. had a RA SPO2 of 96% and was in no respiratory distress. Dr. Johnson suggested that we ambulate the patient 1 more time to see what his pulse ox did. Dr. Johnson then stated to call her back should we need to admit the patient for hypoxia. RN reambulated the pt. and stated that his SPO2 remained at 94% and he was "a lot better on his feet." Pt. denies any shortness of breath and stated that he wanted to go home. LS without wheeze, slightly diminished left lower. Pt. stated he would have his neighbor take him to get his ABX filled this morning. Return precautions given. - Vital Signs Vital signs: Temp Pulse Resp BP Pulse Ox 100 27 H 128/64 H 95 04/24/18 20:06 04/25/18 05:00 04/25/18 05:00 04/25/18 05:00 - Laboratory Result Diagrams: 04/24/18 20:25 04/24/18 20:25 Laboratory results interpreted by me: 04/24/18 04/24/18 20:25 20:25 RBC 3.39 L Hgb 11.2 L Hct 32.5 L Plt Count 141 L Lymphocytes % 12.6 L BUN 23 H Glucose 117 H Discharge - Discharge Clinical Impression: COPD (chronic obstructive pulmonary disease) Qualifiers: COPD type: unspecified COPD Qualified Code(s): J44.9 - Chronic obstructive pulmonary disease, unspecified Pneumonia Qualifiers: Pneumonia type: due to unspecified organism Laterality: left Lung location: lower lobe of lung Qualified Code(s): J18.1 - Lobar pneumonia, unspecified organism Condition: Stable Disposition: HOME, SELF-CARE Additional Instructions: Pneumonia Your examination indicates that you have pneumonia. This is an infection of the lung tissue, usually caused by bacteria or a virus. Symptoms include cough, fever, shaking chills, chest pain, shortness of breath, and coughing up bloody sputum. Treatment for bacterial pneumonia includes rest, antibiotics for 10 to 14 days, increasing your clear liquid intake, a cool mist humidifier at your bedside, and fever medication. Often, a repeat chest X-ray is performed in a few weeks--even if you feel better--to ascertain whether the infection has completely resolved and no underlying lung problem is present. You should call the physician if you develop persistent vomiting, high fever that does not respond to fever medication, increasing shortness of breath , confusion, or lethargy. Also, failure to improve within two to three days is an indication for re-examination. Chronic Obstructive Lung Disease You have chronic obstructive lung disease (COPD). The symptoms come from emphysema (damage to small airways, with trapping of air in large sacks in the lung) and chronic bronchitis (repeated infection and damage to larger airways). The cause is almost always cigarette smoking, although dust exposure, asthma, and infections contribute. You should avoid fumes, dust, and smoke (especially tobacco smoke). Your condition will flare from time to time. There is no cure, but the symptoms can be treated. Bronchodilators (asthma medicine) are often helpful. Antibiotics help when infection is present. When shortness of breath is severe, we may prescribe cortisone medication. If medicine doesn't help enough, we can arrange for you to have an oxygen tank at home. Notify your doctor at once if sputum becomes thick, foul, or bloody, if you develop a fever or chest pain, or if your shortness of breath worsens. Prescriptions: Doxycycline Hyclate 100 mg PO BID #14 capsule Prednisone [Deltasone 20 mg Tablet] 3 tab PO DAILY 5 Days tablet Referrals: TATINAA PARK DO [NO LOCAL MD] - Follow up as needed
[2018-04-24 20:43] LABS: ABSOLUTE BASOPHILS # (AUTO) 0.1 10^3/uL (0.0-0.2); ABSOLUTE EOSINOPHILS # (AUTO) 0.2 10^3/uL (0.0-0.6); ABSOLUTE MONOCYTES (AUTO) 0.5 10^3/uL (0.1-1.4); ABSOLUTE NEUT (AUTO) 6.2 10^3/uL (1.7-8.2); BASOPHILS % (AUTO) 0.6 % (0-2); EOSINOPHILS % (AUTO) 2.9 % (0-6); HEMATOCRIT 32.5 % (37.9-51.0); HEMOGLOBIN 11.2 g/dL (13.5-17.0); LYMPHOCYTES % (AUTO) 12.6 % (13-45); MEAN CORPUSCULAR HEMOGLOBIN 33.1 pg (27.0-33.4); MEAN CORPUSCULAR HGB CONC 34.5 g/dL (32.0-36.0); MEAN CORPUSCULAR VOLUME 96 fl (80-97); MONOCYTES % (AUTO) 6.1 % (3-13); PLATELET COUNT 141 10^3/uL (150-450); RED BLOOD COUNT 3.39 10^6/uL (4.35-5.55); RED CELL DISTRIBUTION WIDTH 13.6 % (11.5-14.0); SEGMENTED NEUTROPHILS % (AUTO) 77.8 % (42-78); TOTAL CELLS COUNTED % (AUTO) 100 %
[2018-04-24 20:53] LABS: VENOUS BLOOD BASE EXCESS 2.1 mmol/L; VENOUS BLOOD HCO3 28.2 mmol/L (20-32); VENOUS BLOOD PCO2 49.6 mmHg (35-63); VENOUS BLOOD PH 7.37 (7.30-7.42)
[2018-04-24 21:03] LABS: ALANINE AMINOTRANSFERASE 35 U/L (21-72); ALBUMIN 3.7 g/dL (3.5-5.0); ALKALINE PHOSPHATASE 63 U/L (38-126); ANION GAP 9 (5-19); ASPARTATE AMINO TRANSFERASE 32 U/L (17-59); BILIRUBIN,DIRECT 0.4 mg/dL (0.0-0.4); BILIRUBIN,TOTAL 0.7 mg/dL (0.2-1.3); BLOOD UREA NITROGEN 23 mg/dL (7-20); CALCIUM 8.9 mg/dL (8.4-10.2); CARBON DIOXIDE 28 mmol/L (22-30); CHLORIDE 104 mmol/L (98-107); CREATINE KINASE 162 U/L (55-170); GLUCOSE 117 mg/dL (75-110); POTASSIUM 4.4 mmol/L (3.6-5.0); SODIUM 141.1 mmol/L (137-145); TOTAL PROTEIN 6.6 g/dL (6.3-8.2)
[2018-04-24 21:14] LABS: CREATINE KINASE MB 2.27 ng/mL (<4.55); TROPONIN I 0.032 ng/mL
--- NOTE | 2018-04-24 22:03 | RADIOLOGY REPORT (SQ) ---
EXAM DESCRIPTION: CLINICAL HISTORY: 72 years Male SOB COMPLETED DATE/TME: 04/24/2018 20:12 COMPARISON: 01/05/2018 FINDINGS: Cardiac size is unchanged. Multiple median sternotomy wires are present. Lungs are hyperinflated compatible COPD. Small amount density adjacent to the left heart border which is new as compared to the previous study. Findings may reflect area of atelectasis or infiltrate. IMPRESSION: Area of increased density adjacent to the left heart border along the hemidiaphragmatic surface which may reflect developing atelectasis or infiltrate Cardiac enlargement and COPD
--- NOTE | 2018-04-24 22:27 | EKG REPORT ---
SEVERITY:- ABNORMAL ECG - SINUS TACHYCARDIA VENTRICULAR BIGEMINY FIRST DEGREE AV BLOCK RBBB AND LAFB LEFT VENTRICULAR HYPERTROPHY : Confirmed by: Jeanie Medina MD 24-Apr-2018 22:26:54
[2018-04-24] MEDS ORDERED: CEFTRIAXONE INJ 1000 MG VIAL IV ONE (23:07)
[2018-04-24] MEDS ORDERED: AZITHROMYCIN INJ 500 MG VIAL IV ONE (23:08)
[2018-04-25] MEDS ORDERED: LIDOCAINE 5% (700 MG) TRANSDERMAL ADH..PATCH TP ONE (00:16)
[2018-04-25 05:32] VITALS: BP 128/64
== END 2018-04-25 05:38 | disposition home or self-care (01) ==
LOC: ER 19:49 → UNDOADMIN 04-25 03:16 → EH 04-25 03:16 → ER 04-25 05:38
DX: J18.1 Lobar pneumonia, unspecified organism (principal); J44.0 Chronic obstructive pulmonary disease with (acute) lower respiratory infection; F17.200 Nicotine dependence, unspecified, uncomplicated; I10 Essential (primary) hypertension
CPT/HCPCS: 93005; 94640; 99285; 96375; 96365; 96367; 36415; 87040; 82553; 82550; 85025; 80053; 84484; 82803; 71045; 93010; J2930; J0696; J0456; A9270; J7620

== ENCOUNTER → 2018-05-16 | Outpatient (CLI) | payer MEDICARE, OTHER ==
--- NOTE | 2018-05-16 10:14 | RADIOLOGY REPORT (SQ) ---
EXAM DESCRIPTION: HIP RIGHT AP/LATERAL COMPLETED DATE/TIME: 05/16/2018 9:51 am REASON FOR STUDY: RT HIP PAIN M25.551 PAIN IN RIGHT HIP COMPARISON: None. NUMBER OF VIEWS: Two views. TECHNIQUE: AP pelvis and additional frog-leg view of the right hip. LIMITATIONS: None. FINDINGS: MINERALIZATION: Normal. RIGHT HIP: No fracture or dislocation. No worrisome bone lesions. LEFT HIP: Left hip arthroplasty in good position. PUBIS AND ISCHIUM: No fracture. PELVIS: No fracture. SACRUM: No fracture or dislocation. No worrisome bone lesions. LOWER LUMBAR SPINE: No fracture or dislocation. No worrisome bone lesions. No significant disc disea se. SOFT TISSUES: No findings. OTHER: No other significant finding. IMPRESSION: NEGATIVE STUDY OF THE RIGHT HIP. NO RADIOGRAPHIC EVIDENCE OF ACUTE INJURY. TECHNICAL DOCUMENTATION: JOB ID: [id number] [employer]- All Rights Reserved Reading location - IP/workstation name: [email or web address]
== END ==
LOC: OD 09:21
PROVIDERS: ATTEND Family Medicine
DX: M25.551 Pain in right hip (principal)

== ENCOUNTER 2018-05-20 16:57 | Emergency (ER) | payer MEDICARE ==
--- NOTE | 2018-05-20 17:27 | ER Document Report ---
ED General - General Chief Complaint: Contusion Stated Complaint: FLL RIGHT HIP PAIN Time Seen by Provider: 05/20/18 17:24 Mode of Arrival: Ambulatory Information source: Patient Notes: 72-year-old male presents emergency department with complaints of a bruise to the right hip. Patient states that he fell on 05/16/18. He went to see his family doctor and had an x-ray done. It was read as negative. Patient states that he is on Coumadin. His INR last week was 1.9. Patient states that it was subtherapeutic. Patient is here today because he is concerned about a blood clot in that area. He states that he has been taking his Coumadin as directed. Patient denies any difficulty ambulating, numbness, tingling, weakness. TRAVEL OUTSIDE OF THE [place] IN LAST 30 DAYS: No - HPI Onset: Last week Onset/Duration: Gradual Quality of pain: No pain Associated symptoms: None Exacerbated by: Denies Relieved by: Denies Similar symptoms previously: Yes Recently seen / treated by doctor: Yes - Related Data Allergies/Adverse Reactions: No Known Allergies Allergy (Verified 01/28/18 08:20) Past Medical History - Social History Smoking Status: Current Every Day Smoker Chew tobacco use (# tins/day): No Frequency of alcohol use: None Drug Abuse: None Family History: CAD, Hypertension Patient has suicidal ideation: No Patient has homicidal ideation: No - Past Medical History Cardiac Medical History: Reports: Hx Coronary Artery Disease, Hx Heart Attack - 8YRS AGO??, Hx Hypercholesterolemia, Hx Hypertension - MEDICATED Denies: Hx Atrial Fibrillation, Hx Congestive Heart Failure, Hx Peripheral Vascular Disease, Hx Heart Murmur Pulmonary Medical History: Reports: Hx COPD Denies: Hx Asthma Neurological Medical History: Denies: Hx Cerebrovascular Accident, Hx Seizures Renal/ Medical History: Denies: Hx Peritoneal Dialysis GI Medical History: Denies: Hx Gastroesophageal Reflux Disease, Hx Hepatitis, Hx Hiatal Hernia, Hx Ulcer Musculoskeletal Medical History: Reports Hx Arthritis, Denies Hx Fibromyalgia, Denies Hx Muscular Dystrophy, Reports Hx Musculoskeletal Trauma Skin Medical History: Reports Hx Cellulitis, Reports Hx MRSA Traumatic Medical History: Reports: Hx Fractures Infectious Medical History: Denies: Hx Hepatitis Past Surgical History: Reports: Hx Cardiac Surgery - bypass, stents, mechanical valve, Hx Carotid Endarterectomy, Hx Cholecystectomy, Hx Coronary Artery Bypass Graft, Hx Open Heart Surgery - 1997 VALVE REPLACEMENT, Hx Orthopedic Surgery - left hip. Denies: Hx Appendectomy, Hx Bowel Surgery, Hx Gastric Bypass Surgery , Hx Herniorrhaphy, Hx Pacemaker, Hx Tonsillectomy - Immunizations Immunizations up to date: Yes Hx Diphtheria, Pertussis, Tetanus Vaccination: Yes Hx Pneumococcal Vaccination: 08/06/10 Review of Systems - Review of Systems Constitutional: No symptoms reported EENT: No symptoms reported Cardiovascular: No symptoms reported Respiratory: No symptoms reported Gastrointestinal: No symptoms reported Genitourinary: No symptoms reported Musculoskeletal: No symptoms reported Skin: Change in color Hematologic/Lymphatic: No symptoms reported Neurological/Psychological: No symptoms reported -: Yes All other systems reviewed and negative Physical Exam - Vital signs Vitals: Temp Pulse Resp BP Pulse Ox 97.9 F 90 24 H 116/53 L 97 05/20/18 17:11 05/20/18 17:11 05/20/18 17:11 05/20/18 17:11 05/20/18 17:11 - Notes Notes: PHYSICAL EXAMINATION: GENERAL: Well-appearing, well-nourished and in no acute distress. HEAD: Atraumatic, normocephalic. EYES: Pupils equal round and reactive to light, extraocular movements intact, sclera anicteric, conjunctiva are normal. ENT: Nares patent, oropharynx clear without exudates. Moist mucous membranes. NECK: Normal range of motion, supple without lymphadenopathy LUNGS: Breath sounds clear to auscultation bilaterally and equal. No wheezes rales or rhonchi. HEART: Regular rate and rhythm without murmurs ABDOMEN: Soft, nontender, nondistended abdomen. No guarding, no rebound. No masses appreciated. Musculoskeletal: Normal range of motion, no pitting or edema. No cyanosis. No tenderness to palpation in the right hip or right thigh. 2+ femoral pulse. NEUROLOGICAL: Cranial nerves grossly intact. Normal speech, normal gait. Normal sensory, motor exams PSYCH: Normal mood, normal affect. SKIN: Warm, Dry, normal turgor, contusion to the right lateral thigh Course - Re-evaluation Re-evalutation: 05/20/18 18:33 INR therapeutic. Venous Doppler done. No DVT appreciated. I discussed the results the patient. I instructed him to follow-up with his primary care physician this week, to take medications as directed, and to return to the emergency department for worsening symptoms. Patient is agreeable to plan of care. - Vital Signs Vital signs: Temp Pulse Resp BP Pulse Ox 97.9 F 90 24 H 116/53 L 97 05/20/18 17:11 05/20/18 17:11 05/20/18 17:11 05/20/18 17:11 05/20/18 17:11 - Laboratory Laboratory results interpreted by me: 05/20/18 17:35 PT 25.2 H APTT 38.3 H Discharge - Discharge Clinical Impression: Contusion Qualifiers: Encounter type: subsequent encounter Contusion area: thigh Laterality: right Qualified Code(s): S70.11XD - Contusion of right thigh, subsequent encounter Condition: Good Disposition: HOME, SELF-CARE Instructions: Contusion ([facility]) Referrals: TATIANA PARK DO [Primary Care Provider] - Follow up as needed
[2018-05-20 18:05] LABS: INTERNATIONAL RATION (INR) 2.17; PROTHROMBIN TIME 25.2 SEC (11.4-15.4)
[2018-05-20 18:06] LABS: PARTIAL THROMBOPLASTIN TIME 38.3 SEC (23.5-35.8)
[2018-05-20 18:50] VITALS: BP 131/73
--- NOTE | 2018-05-20 18:54 | RADIOLOGY REPORT (SQ) ---
EXAM DESCRIPTION: VENOUS UNILATERAL LOWER COMPLETED DATE/TIME: 05/20/2018 6:40 pm REASON FOR STUDY: pain left leg / Hx clots COMPARISON: None. TECHNIQUE: Dynamic and static munguia scale and color images acquired of the right leg venous system. S elected spectral images acquired with additional compression and augmentation maneuvers. The contrala teral common femoral vein and saphenofemoral junction were also imaged. Images stored on PACS. LIMITATIONS: None. FINDINGS: COMMON FEMORAL: Normal phasicity, compression and augmentation. No visualized echogenic ma terial on munguia scale. No defects on color images. FEMORAL: Normal compression and augmentation. No visualized echogenic material on munguia scale. No defe cts on color images. POPLITEAL: Normal compression, augmentation. No visualized echogenic material on munguia scale. No defec ts on color images. CALF VESSELS: Normal compression, augmentation. No visualized echogenic material on munguia scale. No de fects on color images. GSV and SSV: Normal compression, augmentation. No visualized echogenic material on munguia scale. No def ects on color images. ANY DEEP VENOUS INSUFFICIENCY: Not evaluated. ANY EVIDENCE OF POPLITEAL CYST: No. OTHER: No other significant finding. CONTRALATERAL COMMON FEMORAL VEIN AND SAPHENOFEMORAL JUNCTION: Normal phasicity, compression and augmentation. No visualized echogenic material on munguia scale. No de fects on color images. IMPRESSION: NO EVIDENCE OF DVT OR SVT IN THE RIGHT LEG. TECHNICAL DOCUMENTATION: JOB ID: [id number] [employer]- All Rights Reserved Reading location - IP/workstation name: [email or web address]
== END 2018-05-20 18:55 | disposition home or self-care (01) ==
LOC: ER 16:57
DX: S70.11XD Contusion of right thigh, subsequent encounter (principal); W19.XXXD Unspecified fall, subsequent encounter; F17.200 Nicotine dependence, unspecified, uncomplicated; I25.10 Atherosclerotic heart disease of native coronary artery without angina pectoris; I10 Essential (primary) hypertension; E78.00 Pure hypercholesterolemia, unspecified; J44.9 Chronic obstructive pulmonary disease, unspecified; I25.2 Old myocardial infarction; Z79.01 Long term (current) use of anticoagulants; Z95.1 Presence of aortocoronary bypass graft; Z90.49 Acquired absence of other specified parts of digestive tract
CPT/HCPCS: 36415; 85610; 85730; 93971; 99284

== ENCOUNTER → 2018-07-02 | Outpatient (CLI) | payer MEDICARE, OTHER ==
--- NOTE | 2018-07-02 11:54 | RADIOLOGY REPORT (SQ) ---
EXAM DESCRIPTION: SHOULDER RIGHT 2 OR MORE VIEWS COMPLETED DATE/TIME: 07/02/2018 11:46 am REASON FOR STUDY: RT SHOULDER PAIN M25.511 PAIN IN RIGHT SHOULDER COMPARISON: None. NUMBER OF VIEWS: Three views. TECHNIQUE: Internal rotation, external rotation, and Y view images acquired of the right shoulder. LIMITATIONS: None. FINDINGS: MINERALIZATION: Normal. BONES: No acute fracture or dislocation. No worrisome bone lesions. JOINTS: No dislocation. VISUALIZED LUNGS AND RIBS: No pneumothorax. No rib fracture. SOFT TISSUES: No radiopaque foreign body. OTHER: No other significant finding. IMPRESSION: NEGATIVE STUDY OF THE RIGHT SHOULDER. NO RADIOGRAPHIC EVIDENCE OF ACUTE INJURY. TECHNICAL DOCUMENTATION: JOB ID: [id number] [employer]- All Rights Reserved Reading location - IP/workstation name: [email or web address]
== END ==
LOC: OD 11:34
PROVIDERS: ATTEND Family Medicine
DX: M25.511 Pain in right shoulder (principal)

== ENCOUNTER 2018-11-08 15:07 | Emergency (ER) | payer MEDICARE, OTHER ==
--- NOTE | 2018-11-08 15:49 | ER Document Report ---
ED Medical Screen (RME) - General Chief Complaint: Fall Stated Complaint: FALL/LACERATION TO HEAD Time Seen by Provider: 11/08/18 15:41 Primary Care Provider: TATIANA PARK DO [Primary Care Provider] - Follow up as needed Mode of Arrival: Wheelchair Information source: Patient, Relative Notes: Patient is a 73-year-old male on Coumadin who presents after suffering a fall. Patient reports he was working in the garden when he fell forward. He has a small abrasion noted to his forehead and a large skin tear noted to his left forearm. He reports pain over the left forearm. Denies any loss of consciousness, nausea or vomiting. I have greeted and performed a rapid initial assessment of this patient. A comprehensive ED assessment and evaluation of the patient, analysis of test results and completion of the medical decision making process will be conducted by additional ED providers. Dictation of this chart was performed using voice recognition software; therefore, there may be some unintended grammatical errors. TRAVEL OUTSIDE OF THE [place] IN LAST 30 DAYS: No - Related Data Allergies/Adverse Reactions: No Known Allergies Allergy (Verified 01/28/18 08:20) Past Medical History - Social History Chew tobacco use (# tins/day): No Frequency of alcohol use: None Drug Abuse: None - Past Medical History Cardiac Medical History: Reports: Hx Coronary Artery Disease, Hx Heart Attack - 8YRS AGO??, Hx Hypercholesterolemia, Hx Hypertension - MEDICATED Denies: Hx Atrial Fibrillation, Hx Congestive Heart Failure, Hx Peripheral Vascular Disease, Hx Heart Murmur Pulmonary Medical History: Reports: Hx COPD Denies: Hx Asthma Neurological Medical History: Denies: Hx Cerebrovascular Accident, Hx Seizures Renal/ Medical History: Denies: Hx Peritoneal Dialysis GI Medical History: Denies: Hx Gastroesophageal Reflux Disease, Hx Hepatitis, Hx Hiatal Hernia, Hx Ulcer Musculoskeltal Medical History: Reports Hx Arthritis, Denies Hx Fibromyalgia, Denies Hx Muscular Dystrophy, Reports Hx Musculoskeletal Trauma Skin Medical History: Reports Hx Cellulitis, Reports Hx MRSA Traumatic Medical History: Reports: Hx Fractures Infectious Medical History: Denies: Hx Hepatitis Past Surgical History: Reports: Hx Cardiac Surgery - bypass, stents, mechanical valve, Hx Carotid Endarterectomy, Hx Cholecystectomy, Hx Coronary Artery Bypass Graft, Hx Open Heart Surgery - 1998 VALVE REPLACEMENT, Hx Orthopedic Surgery - left hip. Denies: Hx Appendectomy, Hx Bowel Surgery, Hx Gastric Bypass Surgery, Hx Herniorrhaphy, Hx Pacemaker, Hx Tonsillectomy - Immunizations Immunizations up to date: Yes Hx Diphtheria, Pertussis, Tetanus Vaccination: Yes Physical Exam - Vital signs Vitals: Temp Pulse Resp BP Pulse Ox 97.5 F 81 18 146/59 H 97 11/08/18 15:27 11/08/18 15:27 11/08/18 15:27 11/08/18 15:27 11/08/18 15:27 Course - Vital Signs Vital signs: Temp Pulse Resp BP Pulse Ox 97.5 F 81 18 146/59 H 97 11/08/18 15:27 11/08/18 15:27 11/08/18 15:27 11/08/18 15:27 11/08/18 15:27 Doctor's Discharge - Discharge Referrals: TATIANA PARK DO [Primary Care Provider] - Follow up as needed
--- NOTE | 2018-11-08 16:40 | RADIOLOGY REPORT (SQ) ---
EXAM DESCRIPTION: CT HEAD WITHOUT COMPLETED DATE/TIME: 11/08/2018 3:57 pm REASON FOR STUDY: fall, on coumadin COMPARISON: None. TECHNIQUE: Axial images acquired through the brain without intravenous contrast. Images reviewed wi th bone, brain and subdural windows. Additional sagittal and coronal reconstructions were generated. Images stored on PACS. All CT scanners at this facility use dose modulation, iterative reconstruction, and/or weight based d osing when appropriate to reduce radiation dose to as low as reasonably achievable (ALARA). [facility]: Dose Right [facility]: CareDose [facility]: Dose Right [facility]: Teradose 4D [facility]: Smart [employer] RADIATION DOSE: CT Rad equipment meets quality standard of care and radiation dose reduction techniq ues were employed. CTDIvol: 23.1 mGy. DLP: 453 mGy-cm. mGy. LIMITATIONS: None. FINDINGS: VENTRICLES: Prominent. CEREBRUM: No masses. No hemorrhage. No midline shift. Areas of low density in the white matter mos t likely due to chronic micro-vascular ischemic change. No evidence for acute infarction. CEREBELLUM: No masses. No hemorrhage. No alteration of density. No evidence for acute infarction. EXTRAAXIAL SPACES: Mild age-related involutional change. No fluid collections. No masses. ORBITS AND GLOBE: No intra- or extraconal masses. Normal contour of globe without masses. CALVARIUM: No fracture. PARANASAL SINUSES: No fluid or mucosal thickening. SOFT TISSUES: No mass or hematoma. OTHER: No other significant finding. IMPRESSION: MILD CHRONIC CHANGES OF ATROPHY AND MICROVASCULAR ISCHEMIA. NO ACUTE PROCESS. EVIDENCE OF ACUTE STROKE: NO. TECHNICAL DOCUMENTATION: JOB ID: [id number] Quality ID # [id number]: Final reports with documentation of one or more dose reduction techniques (e.g., Au tomated exposure control, adjustment of the mA and/or kV according to patient size, use of iterative reconstruction technique) 2010 [employer]- All Rights Reserved Reading location - IP/workstation name: [email or web address]
--- NOTE | 2018-11-08 16:42 | RADIOLOGY REPORT (SQ) ---
EXAM DESCRIPTION: FOREARM LEFT COMPLETED DATE/TIME: 11/08/2018 4:01 pm REASON FOR STUDY: fall, on coumadin COMPARISON: None. NUMBER OF VIEWS: Two views. TECHNIQUE: Two radiographic images acquired of the left forearm, including elbow and wrist in at [address] one projection. LIMITATIONS: None. FINDINGS: MINERALIZATION: Normal. BONES: No acute fracture. No worrisome bone lesions. SOFT TISSUES: No obvious swelling or foreign body. OTHER: No other significant finding. IMPRESSION: NO RADIOGRAPHIC EVIDENCE OF ACUTE INJURY. TECHNICAL DOCUMENTATION: JOB ID: [id number] [employer]- All Rights Reserved Reading location - IP/workstation name: [email or web address]
--- NOTE | 2018-11-08 19:19 | ER Document Report ---
ED Fall - General Chief Complaint: Fall Stated Complaint: FALL/LACERATION TO HEAD Time Seen by Provider: 11/08/18 15:41 Primary Care Provider: TATIANA PARK DO [Primary Care Provider] - Follow up as needed Mode of Arrival: Wheelchair Information source: Patient, Relative Notes: Patient is a 73-year-old male comes emergency room complaining of a mechanical fall. 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 He Fell into Just Regular Ground and onto a 2 x 6 Board. He Dragged His Left Forearm across the Board. He Is Complaining of Abrasions to His Left Side Forehead and His Left Forearm Has a Skin Tear the Quit Bleeding. Patient Is on Coumadin Currently. He Denies Any loss of consciousness and it was a witnessed fall by his daughter and she confirms that he had no loss of consciousness and no other injuries. He was ambulatory on scene and ambulatory [facility] to [facility]. Patient has a history of A. fib and is why he is on Coumadin. TRAVEL OUTSIDE OF THE [place] IN LAST 30 DAYS: No - HPI Occurred: Just prior to arrival Where: Home Context: Lost balance Location of injury/pain: Head, Upper extremity Quality of pain: No pain Severity: Moderate Pain Level: 3 - Related data Allergies/Adverse Reactions: No Known Allergies Allergy (Verified 01/28/18 08:20) Past Medical History - General Information source: Patient, Relative - Social History Smoking Status: Current Every Day Smoker Cigarette use (# per day): Yes - Half a pack a day Chew tobacco use (# tins/day): No Frequency of alcohol use: None Drug Abuse: None Lives with: Alone Family History: Reviewed & Not Pertinent, CAD, Hypertension Patient has suicidal ideation: No Patient has homicidal ideation: No - Past Medical History Cardiac Medical History: Reports: Hx Coronary Artery Disease, Hx Heart Attack - 8YRS AGO??, Hx Hypercholesterolemia, Hx Hypertension - MEDICATED Denies: Hx Atrial Fibrillation, Hx Congestive Heart Failure, Hx Peripheral Vascular Disease, Hx Heart Murmur Pulmonary Medical History: Reports: Hx COPD Denies: Hx Asthma Neurological Medical History: Denies: Hx Cerebrovascular Accident, Hx Seizures Renal/ Medical History: Denies: Hx Peritoneal Dialysis GI Medical History: Denies: Hx Gastroesophageal Reflux Disease, Hx Hepatitis, Hx Hiatal Hernia, Hx Ulcer Musculoskeletal Medical History: Reports Hx Arthritis, Denies Hx Fibromyalgia, Denies Hx Muscular Dystrophy, Reports Hx Musculoskeletal Trauma Skin Medical History: Reports Hx Cellulitis, Reports Hx MRSA Traumatic Medical History: Reports: Hx Fractures Infectious Medical History: Denies: Hx Hepatitis Past Surgical History: Reports: Hx Cardiac Surgery - bypass, stents, mechanical valve, Hx Carotid Endarterectomy, Hx Cholecystectomy, Hx Coronary Artery Bypass Graft, Hx Open Heart Surgery - 1998 VALVE REPLACEMENT, Hx Orthopedic Surgery - left hip. Denies: Hx Appendectomy, Hx Bowel Surgery, Hx Gastric Bypass Surgery, Hx Herniorrhaphy, Hx Pacemaker, Hx Tonsillectomy - Immunizations Immunizations up to date: Yes Hx Diphtheria, Pertussis, Tetanus Vaccination: Yes Hx Pneumococcal Vaccination: 08/06/10 Review of Systems - Review of Systems Constitutional: No symptoms reported EENT: No symptoms reported Cardiovascular: No symptoms reported Respiratory: No symptoms reported Gastrointestinal: No symptoms reported Genitourinary: No symptoms reported Male Genitourinary: No symptoms reported Musculoskeletal: No symptoms reported Skin: See HPI, Other - Skin tear to the left forearm abrasion to left forehead Hematologic/Lymphatic: No symptoms reported Neurological/Psychological: No symptoms reported Physical Exam - Vital signs Vitals: Temp Pulse Resp BP Pulse Ox 97.5 F 81 18 146/59 H 97 11/08/18 15:27 11/08/18 15:27 11/08/18 15:27 11/08/18 15:27 11/08/18 15:27 Interpretation: Hypertensive - Notes Notes: PHYSICAL EXAMINATION: GENERAL: Patient is a frail-appearing 73-year-old male who is in no apparent distress on physical exam tonight. HEAD: normocephalic. Examination of patient's area of concern is his left forehead. Patient has 2 areas of very small abrasions that already have a clotted and are not currently in any danger of bleeding. The first is approximately 2-1/2 cm across by 2 cm down is very superficial very minor in presentation is basically just some rough top skin. The second is a little bit further to the lateral side of the left forehead is approximately 1-1/2 x 1-1/2 cm. A2 is slightly a little deeper than the first a little bit more abrasive but still not totally into the vascular bed mostly into the dermis with some minor amounts of oozing blood coming through that has already dried and clotted. There is another superficial area but is more of the rough top skin than it is into the vascular bed there is no bleeding associated with it. The rest of the face is normal in appearance. Left forearm has an area on the dorsum portion of the arm it is 5 x 4cm it has an avulsed skin tear that tore the skin completely away from the vascular bed and is missing. There is no skin that I can try to toe puller top to protect it. He currently is oozing slightly they have applied a pressure turning to the area but is still losing some. 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 Patient also has good elbows mobility has good strength against resistance and good flexion-extension of the elbow. EYES: Pupils equal round and reactive to light, extraocular movements intact, sclera anicteric, conjunctiva are normal. ENT: Nares patent, oropharynx clear without exudates. Moist mucous membranes. NECK: Normal range of motion, supple without lymphadenopathy LUNGS: Breath sounds clear to auscultation bilaterally and equal. No wheezes rales or rhonchi. HEART: Regular rate and rhythm without murmurs ABDOMEN: Soft, nontender, nondistended abdomen. No guarding, no rebound. No masses appreciated. Musculoskeletal: Normal range of motion, no pitting or edema. No cyanosis. NEUROLOGICAL: Cranial nerves grossly intact. Normal speech, normal gait. Normal sensory, motor exams PSYCH: Normal mood, normal affect. SKIN: Warm, Dry, normal turgor, no rashes or lesions noted. Course - Re-evaluation Re-evalutation: 11/08/18 19:19 Procedure note Patient's area is 5 x 4 cm as stated in all the skin was missing but it was only into the vascular bed and bleeding was pretty extensive. I trimmed up what you areas there was of loose skin and then used Hibiclens and scrub the area then port of thousand mL's of sterile water onto the arm to flush it. Then applied Surgicel/quick clot to the area of the covered it entirely. I applied sterile Telfa pad nonstick to the area as well and then covered that with 4 x 4 gauze. I then used Covan to lightly attached the previous 4 x 4's and Surgicel to the patient's arm without causing any obstruction of circulation. After application by myself I was able to elicit a less than 2 seconds of cap refill in the fingers of each finger of the left hand. Patient felt like this felt really good to have his arm secured like that. He tolerated this procedure well. Patient's daughter is going to school for being coming a HOSPICE NURSE PRACTITIONER. I have informed her that she needs to leave this dressing on for 48 hours or until Sunday. After that she can take off the Coban and she can take off the 4 x 4's and the Telfa and soak the arm in water. She can then lightly peel away the quick clot so that will bleed. I also told her she does not feel comfortable doing that she can bring back to ER and we can do it here. We will also place patient on a little antibiotic as well. - Vital Signs Vital signs: Temp Pulse Resp BP Pulse Ox 97.5 F 81 18 146/59 H 97 11/08/18 15:27 11/08/18 15:27 11/08/18 15:27 11/08/18 15:27 11/08/18 15:27 Discharge - Discharge Clinical Impression: Fall Qualifiers: Encounter type: initial encounter Qualified Code(s): W19.XXXA - Unspecified fall, initial encounter Skin tear of forearm without complication Qualifiers: Encounter type: initial encounter Laterality: left Qualified Code(s): S51.812A - Laceration without foreign body of left forearm, initial encounter Abrasion of forehead Qualifiers: Encounter type: initial encounter Qualified Code(s): S00.81XA - Abrasion of other part of head, initial encounter Condition: Good Disposition: HOME, SELF-CARE Instructions: Skin Tear ([facility]), Abrasions of the Face ([facility]) Additional Instructions: As we discussed leave this dressing on until at least Sunday. Sunday going to take everything off but do not pole at the last cough that is on there. On this when you need to soak it for 20-30 minutes until it becomes very soft and pliable and peeled gently away from the grain. This will have stopped the bleeding but it will turn these area on his arm pitch black which is normal. After you remove it you can apply another nonstick if it starts to bleed slightly and then remove it after several hours. You can apply an antibiotic cream to the area with a nonstick and the antibiotic ointment or cream will not make it stick to the Telfa pad. Do this for 2-3 days after the start leaving it open to air. Should you have any concerns or problems he can return to ER for recheck. Should you have any concerns about taking the dressing off he can return to ER and we can do it here for you. I am placing patient on antibiotics because of the type of tear it is he must get his Coumadin level checked at about day 7. Prescriptions: Cephalexin Monohydrate [Keflex 500 mg Capsule] 500 mg PO Q6H 7 Days #28 capsule Forms: Smoking Cessation Education Referrals: TATIANA PARK, [Primary Care Provider] - Follow up as needed
[2018-11-08 19:47] VITALS: BP 158/74
== END 2018-11-08 19:48 | disposition home or self-care (01) ==
LOC: ER 15:07
DX: S51.812A Laceration without foreign body of left forearm, initial encounter (principal); S00.81XA Abrasion of other part of head, initial encounter; W18.39XA Other fall on same level, initial encounter; Y93.89 Activity, other specified; W22.8XXA Striking against or struck by other objects, initial encounter; Y92.009 Unspecified place in unspecified non-institutional (private) residence as the place of occurrence of the external cause; F17.210 Nicotine dependence, cigarettes, uncomplicated; I25.10 Atherosclerotic heart disease of native coronary artery without angina pectoris; I10 Essential (primary) hypertension; J44.9 Chronic obstructive pulmonary disease, unspecified; I48.91 Unspecified atrial fibrillation; Z79.01 Long term (current) use of anticoagulants; Z95.5 Presence of coronary angioplasty implant and graft; Z95.1 Presence of aortocoronary bypass graft; Z95.2 Presence of prosthetic heart valve
CPT/HCPCS: 70450; 99283

== ENCOUNTER 2019-02-27 13:38 | Emergency (ER) | payer MEDICARE, OTHER ==
--- NOTE | 2019-02-27 15:25 | ER Document Report ---
ED Medical Screen (RME) - General Chief Complaint: Fall Stated Complaint: HURT ARM Time Seen by Provider: 02/27/19 15:17 Primary Care Provider: TATIANA PARK DO [Primary Care Provider] - Follow up as needed Notes: Patient is a 73-year-old male on Coumadin presents to the emergency department with multiple falls over the last 2 days. States he has multiple skin tears to his left upper extremity as well as an injury to his right elbow. It is unsure if patient hit his head upon falling. Patient is complaining of generalized pain in bilateral upper extremities. Daughter states initial fall was on Sunday with another fall on Sunday. States she is been dressing wounds with gauze at home. GENERAL: Alert, interacts well. No acute distress. HEAD: Normocephalic, atraumatic. SKIN: Warm, dry, multiple skin tears noted left upper extremity, bleeding controlled with bandages. I have greeted and performed a rapid initial assessment of this patient. A comprehensive ED assessment and evaluation of the patient, analysis of test results and completion of the medical decision making process will be conducted by additional ED providers. I have specifically instructed the patient or family members with the patient to immediately return to any nursing staff should anything change in the patient's condition or with their chief complaint. This medical record was dictated with voice recognizing software. There may be grammatical, syntax errors that are unintended. TRAVEL OUTSIDE OF THE [place] IN LAST 30 DAYS: No - Related Data Allergies/Adverse Reactions: No Known Allergies Allergy (Verified 02/27/19 13:42) Past Medical History - Social History Chew tobacco use (# tins/day): No Frequency of alcohol use: None Drug Abuse: None - Past Medical History Cardiac Medical History: Reports: Hx Coronary Artery Disease, Hx Heart Attack - 8YRS AGO??, Hx Hypercholesterolemia, Hx Hypertension - MEDICATED Denies: Hx Atrial Fibrillation, Hx Congestive Heart Failure, Hx Peripheral Vascular Disease, Hx Heart Murmur Pulmonary Medical History: Reports: Hx COPD Denies: Hx Asthma Neurological Medical History: Denies: Hx Cerebrovascular Accident, Hx Seizures Renal/ Medical History: Denies: Hx Peritoneal Dialysis GI Medical History: Denies: Hx Gastroesophageal Reflux Disease, Hx Hepatitis, Hx Hiatal Hernia, Hx Ulcer Musculoskeltal Medical History: Reports Hx Arthritis, Denies Hx Fibromyalgia, Denies Hx Muscular Dystrophy, Reports Hx Musculoskeletal Trauma Skin Medical History: Reports Hx Cellulitis, Reports Hx MRSA Traumatic Medical History: Reports: Hx Fractures Infectious Medical History: Denies: Hx Hepatitis Past Surgical History: Reports: Hx Cardiac Surgery - bypass, stents, mechanical valve, Hx Carotid Endarterectomy, Hx Cholecystectomy - states still has gall bladder, Hx Coronary Artery Bypass Graft, Hx Open Heart Surgery - 1998 VALVE REPLACEMENT, Hx Orthopedic Surgery - left hip. Denies: Hx Appendectomy, Hx Bowel Surgery, Hx Gastric Bypass Surgery, Hx Herniorrhaphy, Hx Pacemaker, Hx Tonsillectomy - Immunizations Immunizations up to date: Yes Hx Diphtheria, Pertussis, Tetanus Vaccination: Yes Physical Exam - Vital signs Vitals: Temp Pulse Resp BP Pulse Ox 98.1 F 87 16 117/61 96 02/27/19 13:53 02/27/19 13:53 02/27/19 13:53 02/27/19 13:53 02/27/19 13:53 Course - Vital Signs Vital signs: Temp Pulse Resp BP Pulse Ox 98.1 F 87 16 117/61 96 02/27/19 13:53 02/27/19 13:53 02/27/19 13:53 02/27/19 13:53 02/27/19 13:53 Doctor's Discharge - Discharge Referrals: TATIANA PARK DO [Primary Care Provider] - Follow up as needed
[2019-02-27 15:46] LABS: ABSOLUTE BASOPHILS # (AUTO) 0.1 10^3/uL (0.0-0.2); ABSOLUTE EOSINOPHILS # (AUTO) 0.2 10^3/uL (0.0-0.6); ABSOLUTE LYMPHOCYTES (AUTO) 1.3 10^3/uL (0.5-4.7); ABSOLUTE MONOCYTES (AUTO) 0.4 10^3/uL (0.1-1.4); BASOPHILS % (AUTO) 1.4 % (0-2); EOSINOPHILS % (AUTO) 4.8 % (0-6); HEMATOCRIT 36.5 % (37.9-51.0); HEMOGLOBIN 12.3 g/dL (13.5-17.0); LYMPHOCYTES % (AUTO) 26.5 % (13-45); MEAN CORPUSCULAR HEMOGLOBIN 31.6 pg (27.0-33.4); MEAN CORPUSCULAR HGB CONC 33.7 g/dL (32.0-36.0); MEAN CORPUSCULAR VOLUME 94 fl (80-97); PLATELET COUNT 153 10^3/uL (150-450); RED BLOOD COUNT 3.89 10^6/uL (4.35-5.55); RED CELL DISTRIBUTION WIDTH 14.5 % (11.5-14.0); SEGMENTED NEUTROPHILS % (AUTO) 59.3 % (42-78); TOTAL CELLS COUNTED % (AUTO) 100 %; WHITE BLOOD COUNT 5.1 10^3/uL (4.0-10.5)
[2019-02-27 15:52] LABS: INTERNATIONAL RATION (INR) 2.54; PROTHROMBIN TIME 27.8 SEC (11.4-15.4)
[2019-02-27 15:53] LABS: PARTIAL THROMBOPLASTIN TIME 38.3 SEC (23.5-35.8)
--- NOTE | 2019-02-27 16:00 | RADIOLOGY REPORT (SQ) ---
EXAM DESCRIPTION: ELBOW RIGHT OVER 2 VIEWS COMPLETED DATE/TIME: 02/27/2019 3:50 pm REASON FOR STUDY: fall COMPARISON: None. NUMBER OF VIEWS: Four views. TECHNIQUE: AP, lateral, and both oblique radiographic images acquired of the right elbow. LIMITATIONS: None. FINDINGS: MINERALIZATION: Normal. BONES: No acute fracture or dislocation. No worrisome bone lesions. JOINT: No effusion. SOFT TISSUES: No soft tissue swelling. No foreign body. OTHER: No other significant finding. IMPRESSION: NEGATIVE STUDY OF THE RIGHT ELBOW. NO RADIOGRAPHIC EVIDENCE OF ACUTE INJURY. TECHNICAL DOCUMENTATION: JOB ID: [id number] [employer]- All Rights Reserved Reading location - IP/workstation name: [email or web address]
[2019-02-27 16:01] LABS: ALANINE AMINOTRANSFERASE 32 U/L (21-72); ALBUMIN 4.6 g/dL (3.5-5.0); ALKALINE PHOSPHATASE 90 U/L (38-126); ANION GAP 9 (5-19); ASPARTATE AMINO TRANSFERASE 40 U/L (17-59); BILIRUBIN,DIRECT 0.3 mg/dL (0.0-0.4); BILIRUBIN,TOTAL 0.7 mg/dL (0.2-1.3); BLOOD UREA NITROGEN 27 mg/dL (7-20); CALCIUM 9.9 mg/dL (8.4-10.2); CARBON DIOXIDE 29 mmol/L (22-30); CHLORIDE 105 mmol/L (98-107); GLUCOSE 82 mg/dL (75-110); POTASSIUM 4.9 mmol/L (3.6-5.0)
--- NOTE | 2019-02-27 16:02 | RADIOLOGY REPORT (SQ) ---
EXAM DESCRIPTION: HUMERUS LEFT COMPLETED DATE/TIME: 02/27/2019 3:50 pm REASON FOR STUDY: fall COMPARISON: None. NUMBER OF VIEWS: Two views. TECHNIQUE: Two radiographic images were acquired of the left humerus to include elbow and shoulder i n at least one projection. LIMITATIONS: None. FINDINGS: MINERALIZATION: Osteopenia. BONES: No acute fracture or dislocation. No worrisome bone lesions. SOFT TISSUES: No obvious swelling or foreign body. OTHER: No other significant finding. IMPRESSION: Osteopenia. No fracture or dislocation of the left humerus. TECHNICAL DOCUMENTATION: JOB ID: [id number] [employer]- All Rights Reserved Reading location - IP/workstation name: [email or web address]
--- NOTE | 2019-02-27 16:04 | RADIOLOGY REPORT (SQ) ---
EXAM DESCRIPTION: FOREARM LEFT COMPLETED DATE/TIME: 02/27/2019 3:50 pm REASON FOR STUDY: fall COMPARISON: 11/08/2018 NUMBER OF VIEWS: Two views. TECHNIQUE: Two radiographic images acquired of the left forearm, including elbow and wrist in at [address] st one projection. LIMITATIONS: None. FINDINGS: MINERALIZATION: Normal. BONES: No acute fracture. No worrisome bone lesions. SOFT TISSUES: No obvious swelling or foreign body. OTHER: No other significant finding. IMPRESSION: NEGATIVE STUDY OF THE LEFT FOREARM. NO RADIOGRAPHIC EVIDENCE OF ACUTE INJURY. TECHNICAL DOCUMENTATION: JOB ID: [id number] [employer]- All Rights Reserved Reading location - IP/workstation name: [email or web address]
--- NOTE | 2019-02-27 16:15 | RADIOLOGY REPORT (SQ) ---
EXAM DESCRIPTION: CT HEAD WITHOUT COMPLETED DATE/TIME: 02/27/2019 3:57 pm REASON FOR STUDY: fall on coumadin COMPARISON: 12/01/2018 TECHNIQUE: Axial images acquired through the brain without intravenous contrast. Images reviewed wi th bone, brain and subdural windows. Additional sagittal and coronal reconstructions were generated. Images stored on PACS. All CT scanners at this facility use dose modulation, iterative reconstruction, and/or weight based d osing when appropriate to reduce radiation dose to as low as reasonably achievable (ALARA). [facility]: Dose Right [facility]: CareDose [facility]: Dose Right [facility]: Teradose 4D [facility]: Smart QBE RADIATION DOSE: CT Rad equipment meets quality standard of care and radiation dose reduction techniq ues were employed. CTDIvol: 53.2 mGy. DLP: 1044 mGy-cm. mGy. LIMITATIONS: None. FINDINGS: VENTRICLES: Normal size and contour. CEREBRUM: No masses. No hemorrhage. No midline shift. No evidence for acute infarction. Normal gra y/white matter differentiation. No areas of low density in the white matter. CEREBELLUM: No masses. No hemorrhage. No alteration of density. No evidence for acute infarction. EXTRAAXIAL SPACES: No fluid collections. No masses. ORBITS AND GLOBE: No intra- or extraconal masses. Normal contour of globe without masses. CALVARIUM: No fracture. PARANASAL SINUSES: Mucoperiosteal changes seen in the right maxillary sinus clear SOFT TISSUES: No mass or hematoma. OTHER: No other significant finding. IMPRESSION: Right maxillary sinus disease. No acute intracranial imaging findings EVIDENCE OF ACUTE STROKE: NO. COMMENT: Quality ID # [id number]: Final reports with documentation of one or more dose reduction techniques (e.g., Automated exposure control, adjustment of the mA and/or kV according to patient size, use of iterative reconstruction technique) TECHNICAL DOCUMENTATION: JOB ID: [id number] [employer]- All Rights Reserved Reading location - IP/workstation name: [email or web address]
--- NOTE | 2019-02-27 16:19 | RADIOLOGY REPORT (SQ) ---
EXAM DESCRIPTION: CT CERVICAL SPINE WITHOUT COMPLETED DATE/TIME: 02/27/2019 3:57 pm REASON FOR STUDY: fall COMPARISON: 12/01/2018 TECHNIQUE: Axial images acquired through the cervical spine without intravenous contrast. Images re viewed with lung, soft tissue and bone windows. Reconstructed coronal and sagittal MPR images review ed. Images stored on PACS. All CT scanners at this facility use dose modulation, iterative reconstruction, and/or weight based d osing when appropriate to reduce radiation dose to as low as reasonably achievable (ALARA). [facility]: Dose Right [facility]: CareDose [facility]: Dose Right [facility]: Teradose 4D [facility]: [employer] RADIATION DOSE: CT Rad equipment meets quality standard of care and radiation dose reduction techniq ues were employed. CTDIvol: 17.2 mGy. DLP: 336 mGy-cm. mGy. LIMITATIONS: None. FINDINGS: ALIGNMENT: Straightening of the normal cervical lordosis, likely positional. MINERALIZATION: Normal. VERTEBRAL BODIES: No fractures or dislocation. DISCS: Multilevel degenerative disc disease with disc height loss greatest at C5-6 and C6-7. Small a ssociated posterior disc osteophyte complexes. FACETS, LATERAL MASSES, POSTERIOR ELEMENTS: No facet fracture or dislocation. Multilevel facet arthr opathy greatest at C3 through C5 on the right. There is [id number] associated osseous neural f oraminal narrowing. HARDWARE: None in the spine. VISUALIZED RIBS: No fractures. LUNG APICES AND SOFT TISSUES: No pneumothorax. Emphysematous change. Atherosclerotic disease within the bilateral carotid arteries. OTHER: No other significant finding. IMPRESSION: No evidence of acute bony abnormality of the cervical spine. Multilevel degenerative changes as above. TECHNICAL DOCUMENTATION: JOB ID: [id number] Quality ID # [id number]: Final reports with documentation of one or more dose reduction techniques (e.g., Au tomated exposure control, adjustment of the mA and/or kV according to patient size, use of iterative reconstruction technique) 2010 [employer]- All Rights Reserved Reading location - IP/workstation name: [email or web address]
--- NOTE | 2019-02-27 16:42 | ER Document Report ---
ED Fall - General Chief Complaint: Fall Stated Complaint: HURT ARM Time Seen by Provider: 02/27/19 15:17 Primary Care Provider: TATIANA PARK DO [Primary Care Provider] - Follow up as needed Notes: Patient says he sat down in a chair the wrong way twice, once on Sunday and once on Sunday. Sitting in that manner caused him to miss the chair and fall to the floor. He is here because of skin tears on both arms. Says he does not have any pain anywhere unless you touch the skin tears. Has multiple bruises from previous falls and injuries. Patient says he did not have any loss of consciousness, seizure, etc. Denies any chest or abdomen symptoms or complaints. Patient has A. fib and is on warfarin. TRAVEL OUTSIDE OF THE [place] IN LAST 30 DAYS: No - Related data Allergies/Adverse Reactions: No Known Allergies Allergy (Verified 02/27/19 13:42) Past Medical History - Social History Smoking Status: Current Every Day Smoker Chew tobacco use (# tins/day): No Frequency of alcohol use: None Drug Abuse: None Family History: Reviewed & Not Pertinent, CAD, Hypertension Patient has suicidal ideation: No Patient has homicidal ideation: No - Past Medical History Cardiac Medical History: Reports: Hx Coronary Artery Disease, Hx Heart Attack - 8YRS AGO??, Hx Hypercholesterolemia, Hx Hypertension - MEDICATED Pulmonary Medical History: Reports: Hx COPD Neurological Medical History: Denies: Hx Cerebrovascular Accident, Hx Seizures Malignancy Medical History: Reports Hx Prostate Cancer Musculoskeletal Medical History: Reports Hx Arthritis, Reports Hx Musculoskeletal Trauma Skin Medical History: Reports Hx Cellulitis, Reports Hx MRSA Traumatic Medical History: Reports: Hx Fractures Infectious Medical History: Denies: Hx Hepatitis Past Surgical History: Reports: Hx Cardiac Surgery - bypass, stents, mechanical valve, Hx Carotid Endarterectomy, Hx Cholecystectomy - states still has gall bladder, Hx Coronary Artery Bypass Graft, Hx Open Heart Surgery - 1998 VALVE REPLACEMENT, Hx Orthopedic Surgery - left hip - Immunizations Immunizations up to date: Yes Hx Diphtheria, Pertussis, Tetanus Vaccination: Yes Hx Pneumococcal Vaccination: 08/06/10 Review of Systems - Review of Systems Notes: REVIEW OF SYSTEMS: CONSTITUTIONAL : Denies fever. EENT: Denies eye, ear, nose or mouth or throat pain or other symptoms. CARDIOVASCULAR: Denies chest pain. RESPIRATORY: Denies cough, chest congestion, or shortness of breath. GASTROINTESTINAL: Denies abdominal pain or nausea, vomiting, or diarrhea. GENITOURINARY: Denies difficulty or painful urinating, urinary frequency, blood in urine. MUSCULOSKELETAL: Denies back or neck pain. Denies joint pain or swelling. SKIN: Denies rash. Multiple small bruises on both forearms. Skin tear lacerations of both forearms. NEUROLOGICAL: Denies LOC or altered mental status. Denies headache. Denies sensory loss or motor deficits. ALL OTHER SYSTEMS REVIEWED AND NEGATIVE. Physical Exam - Vital signs Vitals: Temp Pulse Resp BP Pulse Ox 98.1 F 87 16 117/61 96 02/27/19 13:53 02/27/19 13:53 02/27/19 13:53 02/27/19 13:53 02/27/19 13:53 Interpretation: Normal Notes: PHYSICAL EXAMINATION: GENERAL: Well-appearing, in no acute distress. HEAD: Atraumatic, normocephalic. No hematomas or bruises noted. EYES: Pupils equal round and reactive to light, extraocular movements intact. ENT: oropharynx clear without exudates. Moist mucous membranes. NECK: Normal range of motion, supple. LUNGS: Breath sounds clear and equal bilaterally. HEART: Regular rate and rhythm without murmurs. Patient supposedly has atrial fib, but his heart rate is perfectly steady and regular at my initial examination. ABDOMEN: Soft, nontender. No guarding or rebound. No masses. BACK: No tenderness throughout entire back. EXTREMITIES: Normal range of motion without pain. No bony tenderness in the upper extremities. Full range of motion at the shoulders and elbows of both arms. NEUROLOGICAL: Normal speech, normal gait. Normal sensory, motor, and reflex exams. Awake, alert, and oriented x3. PSYCH: Normal mood, normal affect. SKIN: Warm, dry, no rashes. Patient has multiple scattered bruises throughout both arms. There is a skin tear on the right forearm. There is a skin tear on the dorsum of the left hand. There is a skin tear posterior to the left elbow. None of these are amenable to suturing. Course - Vital Signs Vital signs: Temp Pulse Resp BP Pulse Ox 98.1 F 77 18 149/65 H 99 02/27/19 13:53 02/27/19 16:57 02/27/19 16:57 02/27/19 16:57 02/27/19 16:57 - Laboratory Result Diagrams: 02/27/19 15:30 02/27/19 15:30 Laboratory results interpreted by me: 02/27/19 02/27/19 02/27/19 15:30 15:30 15:30 RBC 3.89 L Hgb 12.3 L Hct 36.5 L RDW 14.5 H PT 27.8 H APTT 38.3 H BUN 27 H Discharge - Discharge Clinical Impression: Falls, Multiple contusions, Multiple skin tears Condition: Stable Disposition: HOME, SELF-CARE Additional Instructions: HEAD INJURY PRECAUTIONS: At this point, there is no evidence that your head injury is serious. Observation is necessary, however. Take only clear liquids for the first few hours, unless told otherwise by t he doctor. If no pain medication was prescribed, you may take acetaminophen according to the directions on the bottle. Do not take any medication that may alter your level of alertness (unless you've discussed it with the doctor first). Limit activity for the first 24 hours. Bed rest is best. During the first 24 hours, check to see approximately every two to three hours that the patient is easily arousable, responds normally, and can perform common tasks such as walking without difficulty. Contact your doctor or go to the hospital if any of the following things occur: Persistent vomiting, difficulty in arousing the patient, worsening or continued headache, or failure to improve as expected. Head injuries can cause symptoms that persist for a few days or even a few weeks. NECK INJURY (CERVICAL STRAIN): You have a neck strain. This is an injury to the muscles and ligaments in the neck. There is no evidence of a fracture of the neck bones. Also, no injury to the spinal cord or nerve roots was detected. Usually, stiffness and pain INCREASE for the first 24-48 hours after the injury. The pain will gradually resolve and the neck will become more mobile. Most patients are back at work or school within a few days. Typically, complete healing takes about two or three weeks. The usual initial treatment is rest and cold packs. A neck collar may be placed to keep the muscles of the neck at rest. Antiinflammatory and muscle relaxing medication are often used to reduce the spasm and irritation. You should call the doctor, or go to the hospital, if you develop numbness or weakness in any extremity, problems with your bladder or bowel, or pain radiating down the arms. CONTUSION: Your injury has resulted in a contusion -- a crushing of the deep tissues. No injury to important structures was detected during the physician's exam. Co ntusions vary in the amount of pain they cause, and in the length of time required for healing. Typically, the area will become bruised, and will remain painful to touch for two or three weeks. However, most patients are back to working and playing within a few days. After the initial period of rest and cold-packs, your symptoms (together with the doctor's recommendations) will determine how rapidly you can get back to full activity. Usually this means "do what feels okay, but don't do things that hurt." If re-examination was recommended, it's important to follow up as instructed. Call the doctor or return any time if pain increases, if swelling becomes severe, if you develop numbness or weakness in an injured extremity, or if any other alarming symptoms occur. ABRASIONS: An abrasion is a scraping injury of the skin. Some scarring may result. The seriousness of an abrasion is not always obvious at first. Hidden tissue damage may be present and infection may occur despite proper care. Complete healing may take from ten days to as long as a month. The healing time depends on the depth of the abrasion, and on the amount of crushing of underlying tissues from the injury. Keep the wound and dressing clean. Do not shower or bathe the area until okayed by the doctor. If the dressing gets wet, remove it and blot the wound dry, then reapply a clean dressing. Dressings should be changed every day. Sunscreen should be used for six months after the skin is healed. If any signs of infection occur (swelling, redness, increasing tenderness, red streaks, profuse purulent drainage from the abrasion, tender lumps in the armpit or groin above the abrasion, or fever), see the doctor immediately. USE OF TYLENOL (ACETAMINOPHEN): Acetaminophen may be taken for pain relief or fever control. It's much safer than aspirin, offering a wider range of "safe" dosages. It is safe during . Some brand names are Tylenol, Panadol, Datril, Anacin 3, Tempra, and Liquiprin. Acetaminophen can be repeated every four hours. The following are ma ximum recommended dosages: WEIGHT Dose Drops Elixir Alexia chaudhry(80mg) (LBS.) drprs=droppers tsp=teaspoon NON-SUTURED LACERATION: Your laceration did not require suturing. Some lacerations cannot be sutured because of increased infection risk, while others simply don't need stitches because they are shallow or very short. Your injury should be protected while it heals. Usually complete healing takes 10 to 14 days. Keep the dressing clean and dry, and change it every day. If you notice increasing pain, redness, swelling, drainage, or tender lumps in the armpit or groin above the injury, infection may be present. You should call the doctor at once. FOLLOW-UP CARE: If you have been referred to a physician for follow-up care, call the physicians office for an appointment as you were instructed or within the next two days. If you experience worsening or a significant change in your symptoms, notify the physician immediately or return to the Emergency Department at any time for re-evaluation. Referrals: TATIANA PARK, DO [Primary Care Provider] - Follow up as needed
[2019-02-27 17:00] VITALS: BP 149/65
== END 2019-02-27 17:00 | disposition home or self-care (01) ==
LOC: ER 13:38
DX: S41.112A Laceration without foreign body of left upper arm, initial encounter (principal); S41.111A Laceration without foreign body of right upper arm, initial encounter; W07.XXXA Fall from chair, initial encounter; F17.200 Nicotine dependence, unspecified, uncomplicated; I25.10 Atherosclerotic heart disease of native coronary artery without angina pectoris; I25.2 Old myocardial infarction; I10 Essential (primary) hypertension; Z79.899 Other long term (current) drug therapy; J44.9 Chronic obstructive pulmonary disease, unspecified
CPT/HCPCS: 36415; 70450; 72125; 80053; 85025; 85610; 85730; 99284

== ENCOUNTER → 2019-07-02 | Outpatient (CLI) | payer MEDICARE, OTHER ==
--- NOTE | 2019-07-02 12:36 | RADIOLOGY REPORT (SQ) ---
EXAM DESCRIPTION: RIBS LEFT W/PA CHEST COMPLETED DATE/TIME: 07/02/2019 10:34 am REASON FOR STUDY: PLEURODYNIA R07.81 PLEURODYNIA COMPARISON: None. TECHNIQUE: Frontal view of the chest and additional views of the left ribs acquired. NUMBER OF VIEWS: Five views LIMITATIONS: None. FINDINGS: FRONTAL CXR: No pneumothorax. No pleural effusion. No atelectasis or infiltrates. RIBS: No displaced rib fractures. No lytic or blastic bony lesions. OTHER: No other significant finding. IMPRESSION: NO PNEUMOTHORAX. NO DISPLACED RIB FRACTURES. COMMENT: SITE OF TRAUMA/COMPLAINT MARKED/STAMP COMPLETED: No TECHNICAL DOCUMENTATION: JOB ID: [id number] [employer]- All Rights Reserved Reading location - IP/workstation name: [email or web address]
== END ==
LOC: OD 09:56
PROVIDERS: ATTEND Family Medicine
DX: R07.81 Pleurodynia (principal)

== ENCOUNTER 2019-07-04 15:34 | Emergency (ER) | payer MEDICARE, OTHER ==
--- NOTE | 2019-07-04 16:10 | ER Document Report ---
ED Medical Screen (RME) - General Chief Complaint: Urinary Problem Stated Complaint: BLOOD IN URINE Time Seen by Provider: 07/04/19 16:01 Primary Care Provider: TATIANA PARK DO [Primary Care Provider] - Follow up as needed Notes: Patient is a 73-year-old male currently on Coumadin presents to the emergency department for blood in his urine. States he has had this for the last 2 days. States he falls "all the time." Is complaining of left flank pain. Did present to her primary care provider who did x-rays of the patient's back. States at that time they were told the patient's "blood count was low." Patient denies any dysuria. Voices urine is "sometimes dark red, sometimes pink." GENERAL: Alert, interacts well. No acute distress. ABDOMEN: Soft, non-tender. Non-distended. Bowel sounds present in all 4 quadrants. BACK: no cervical, thoracic, lumbar midline tenderness. No saddle anesthesia, normal distal neurovascular exam. Left CVA tenderness noted. I have greeted and performed a rapid initial assessment of this patient. A comprehensive ED assessment and evaluation of the patient, analysis of test results and completion of the medical decision making process will be conducted by additional ED providers. I have specifically instructed the patient or family members with the patient to immediately return to any nursing staff should anything change in the patient's condition or with their chief complaint. This medical record was dictated with voice recognizing software. There may be grammatical, syntax errors that are unintended. TRAVEL OUTSIDE OF THE [place] IN LAST 30 DAYS: No - Related Data Allergies/Adverse Reactions: No Known Allergies Allergy (Verified 02/27/19 13:42) Past Medical History - Social History Chew tobacco use (# tins/day): No Frequency of alcohol use: None Drug Abuse: None - Past Medical History Cardiac Medical History: Reports: Hx Coronary Artery Disease, Hx Heart Attack - 8YRS AGO??, Hx Hypercholesterolemia, Hx Hypertension - MEDICATED Denies: Hx Atrial Fibrillation, Hx Congestive Heart Failure, Hx Peripheral Vascular Disease, Hx Heart Murmur Pulmonary Medical History: Reports: Hx COPD Denies: Hx Asthma Neurological Medical History: Denies: Hx Cerebrovascular Accident, Hx Seizures Renal/ Medical History: Denies: Hx Peritoneal Dialysis Malignancy Medical History: Reports Hx Prostate Cancer GI Medical History: Denies: Hx Gastroesophageal Reflux Disease, Hx Hepatitis, Hx Hiatal Hernia, Hx Ulcer Musculoskeltal Medical History: Reports Hx Arthritis, Denies Hx Fibromyalgia, Denies Hx Muscular Dystrophy, Reports Hx Musculoskeletal Trauma Skin Medical History: Reports Hx Cellulitis, Reports Hx MRSA Traumatic Medical History: Reports: Hx Fractures Infectious Medical History: Denies: Hx Hepatitis Past Surgical History: Reports: Hx Cardiac Surgery - bypass, stents, mechanical valve, Hx Carotid Endarterectomy, Hx Cholecystectomy - states still has gall bladder, Hx Coronary Artery Bypass Graft, Hx Open Heart Surgery - 1998 VALVE REPLACEMENT, Hx Orthopedic Surgery - left hip. Denies: Hx Appendectomy, Hx Bowel Surgery, Hx Gastric Bypass Surgery, Hx Herniorrhaphy, Hx Pacemaker, Hx Tonsillectomy - Immunizations Immunizations up to date: Yes Hx Diphtheria, Pertussis, Tetanus Vaccination: Yes Physical Exam - Vital signs Vitals: Temp Pulse Resp BP Pulse Ox 97.8 F 86 20 151/63 H 97 07/04/19 15:38 07/04/19 15:38 07/04/19 15:38 07/04/19 15:38 07/04/19 15:38 Course - Vital Signs Vital signs: Temp Pulse Resp BP Pulse Ox 97.8 F 86 20 151/63 H 97 07/04/19 15:38 07/04/19 15:38 07/04/19 15:38 07/04/19 15:38 07/04/19 15:38 Doctor's Discharge - Discharge Referrals: TATIANA PARK DO [Primary Care Provider] - Follow up as needed
[2019-07-04 16:37] LABS: ABSOLUTE BASOPHILS # (AUTO) 0.1 10^3/uL (0.0-0.2); ABSOLUTE EOSINOPHILS # (AUTO) 0.4 10^3/uL (0.0-0.6); ABSOLUTE LYMPHOCYTES (AUTO) 1.7 10^3/uL (0.5-4.7); ABSOLUTE MONOCYTES (AUTO) 0.5 10^3/uL (0.1-1.4); ABSOLUTE NEUT (AUTO) 3.4 10^3/uL (1.7-8.2); EOSINOPHILS % (AUTO) 7.3 % (0-6); HEMATOCRIT 33.8 % (37.9-51.0); HEMOGLOBIN 11.4 g/dL (13.5-17.0); LYMPHOCYTES % (AUTO) 28.2 % (13-45); MEAN CORPUSCULAR HEMOGLOBIN 32.4 pg (27.0-33.4); MEAN CORPUSCULAR HGB CONC 33.9 g/dL (32.0-36.0); MEAN CORPUSCULAR VOLUME 96 fl (80-97); MONOCYTES % (AUTO) 8.3 % (3-13); PLATELET COUNT 157 10^3/uL (150-450); RED BLOOD COUNT 3.53 10^6/uL (4.35-5.55); SEGMENTED NEUTROPHILS % (AUTO) 55.2 % (42-78); TOTAL CELLS COUNTED % (AUTO) 100 %; WHITE BLOOD COUNT 6.1 10^3/uL (4.0-10.5)
[2019-07-04 16:42] LABS: INTERNATIONAL RATION (INR) 2.34; PROTHROMBIN TIME 26.1 SEC (11.4-15.4)
[2019-07-04 16:58] LABS: ALKALINE PHOSPHATASE 84 U/L (38-126); ANION GAP 9 (5-19); ASPARTATE AMINO TRANSFERASE 26 U/L (17-59); BILIRUBIN,DIRECT 0.2 mg/dL (0.0-0.4); BILIRUBIN,TOTAL 0.6 mg/dL (0.2-1.3); BLOOD UREA NITROGEN 25 mg/dL (7-20); CALCIUM 9.3 mg/dL (8.4-10.2); CARBON DIOXIDE 28 mmol/L (22-30); CHLORIDE 104 mmol/L (98-107); GLUCOSE 111 mg/dL (75-110); POTASSIUM 4.6 mmol/L (3.6-5.0); TOTAL PROTEIN 7.4 g/dL (6.3-8.2)
--- NOTE | 2019-07-04 17:37 | RADIOLOGY REPORT (SQ) ---
EXAM DESCRIPTION: U/S RETROPERITON (RENAL/AORTA) COMPLETED DATE/TIME: 07/04/2019 5:21 pm REASON FOR STUDY: left flank pain COMPARISON: 12/10/2015 TECHNIQUE: Dynamic and static grayscale images acquired of the kidneys and bladder and recorded on P ACS. Additional selected color Doppler and spectral images recorded. LIMITATIONS: None. FINDINGS: RIGHT KIDNEY: Normal size. Normal echogenicity. No solid or suspicious masses. No hydronep hrosis. No calcifications. LEFT KIDNEY: Normal size. Normal echogenicity. No solid or suspicious masses. No hydronephrosis. No calcifications. BLADDER: The bladder is obscured by intervening bowel gas. OTHER FINDINGS: No other significant finding. IMPRESSION: Normal sonographic appearance of the kidneys. Nonvisualization of the bladder due to ob scuration by intervening bowel gas. TECHNICAL DOCUMENTATION: JOB ID: [id number] [employer]- All Rights Reserved Reading location - IP/workstation name: [email or web address]
[2019-07-04 18:11] LABS: APPEARANCE,URINE SLIGHTLY-CLOUDY; BILIRUBIN,URINE NEGATIVE (NEGATIVE); COLOR,URINE YELLOW; GLUCOSE, URINE NEGATIVE (NEGATIVE); KETONES,URINE NEGATIVE (NEGATIVE); LEUKOCYTE ESTERASE,URINE MODERATE (NEGATIVE); NITRITE,URINE POSITIVE (NEGATIVE); PROTEIN,URINE NEGATIVE (NEGATIVE); URINE SPECIFIC GRAVITY 1.023
[2019-07-04] MEDS ORDERED: CEFTRIAXONE INJ 1000 MG VIAL IM ONE (20:12)
--- NOTE | 2019-07-04 20:18 | ER Document Report ---
ED General - General Chief Complaint: Urinary Problem Stated Complaint: BLOOD IN URINE Time Seen by Provider: 07/04/19 16:01 Primary Care Provider: TATINAA PARK DO [Primary Care Provider] - Follow up as needed TRAVEL OUTSIDE OF THE [place] IN LAST 30 DAYS: No - HPI Notes: Patient is a 73-year-old male, with known history of atrial flutter, anticoagulated on Coumadin, who presents to the emergency department for evaluation of hematuria. He states is been ongoing for the last 48 hours. He states sometimes is dark, sometimes a slight. He states he has had some pain in his left flank, but attributes that to a fall about a week ago. He denies hitting his head or losing consciousness. No neck or back pain otherwise. He states he really only has pain when he tries to move. He denies any fevers or chills. No nausea or vomiting. He describes the pain as an ache, exacerbated by trying to sit up. He has not tried anything to make it better. - Related Data Allergies/Adverse Reactions: No Known Allergies Allergy (Verified 02/27/19 13:42) Home Medications: List reviewed, please see notes Past Medical History - General Information source: Patient - Social History Smoking Status: Current Every Day Smoker Chew tobacco use (# tins/day): No Frequency of alcohol use: None Drug Abuse: None Family History: Reviewed & Not Pertinent, CAD, Hypertension Patient has suicidal ideation: No Patient has homicidal ideation: No - Past Medical History Cardiac Medical History: Reports: Hx Coronary Artery Disease, Hx Heart Attack - 8YRS AGO??, Hx Hypercholesterolemia, Hx Hypertension - MEDICATED, Other - Atrial flutter Denies: Hx Atrial Fibrillation, Hx Congestive Heart Failure, Hx Peripheral Vascular Disease, Hx Heart Murmur Pulmonary Medical History: Reports: Hx COPD Denies: Hx Asthma Neurological Medical History: Denies: Hx Cerebrovascular Accident, Hx Seizures Renal/ Medical History: Denies: Hx Peritoneal Dialysis Malignancy Medical History: Reports Hx Prostate Cancer GI Medical History: Denies: Hx Gastroesophageal Reflux Disease, Hx Hepatitis, Hx Hiatal Hernia, Hx Ulcer Musculoskeletal Medical History: Reports Hx Arthritis, Denies Hx Fibromyalgia, Denies Hx Muscular Dystrophy, Reports Hx Musculoskeletal Trauma Skin Medical History: Reports Hx Cellulitis, Reports Hx MRSA Traumatic Medical History: Reports: Hx Fractures Infectious Medical History: Denies: Hx Hepatitis Past Surgical History: Reports: Hx Cardiac Surgery - bypass, stents, mechanical valve, Hx Carotid Endarterectomy, Hx Cholecystectomy - states still has gall bladder, Hx Coronary Artery Bypass Graft, Hx Open Heart Surgery - 1998 VALVE REPLACEMENT, Hx Orthopedic Surgery - left hip. Denies: Hx Appendectomy, Hx Bowel Surgery, Hx Gastric Bypass Surgery, Hx Herniorrhaphy, Hx Pacemaker, Hx Tonsillectomy - Immunizations Immunizations up to date: Yes Hx Diphtheria, Pertussis, Tetanus Vaccination: Yes Hx Pneumococcal Vaccination: 08/06/10 Review of Systems - Review of Systems Constitutional: No symptoms reported EENT: No symptoms reported Cardiovascular: No symptoms reported Respiratory: No symptoms reported Gastrointestinal: No symptoms reported Genitourinary: See HPI Musculoskeletal: See HPI Skin: No symptoms reported Neurological/Psychological: No symptoms reported Physical Exam - Vital signs Vitals: Temp Pulse Resp BP Pulse Ox 97.8 F 86 20 151/63 H 97 07/04/19 15:38 07/04/19 15:38 07/04/19 15:38 07/04/19 15:38 07/04/19 15:38 - Notes Notes: This is a very pleasant 73-year-old male, frail in appearance, in no acute distress. Vital signs reviewed, please refer to chart. Head is normocephalic, atraumatic. Pupils equal round, reactive to light. Neck is supple without m eningismus. Heart is regular rate and rhythm. Lungs are clear to auscultation bilaterally. Abdomen is soft, nontender, normoactive bowel sounds throughout. E patient has some very mild tenderness to palpation over the paraspinal musculature throughout the lumbar spine on the left, without associated hematoma. Extremities without cyanosis, clubbing. Posterior calves are nontender. Peripheral pulses are equal. Skin is warm and dry. Patient is awake, alert, neurological exam is nonfocal. Course - Re-evaluation Re-evalutation: 07/04/19 20:15 Patient presents emergency department for evaluation he presents with known dusty turia. His Coumadin is therapeutic at 2.3. His urine is not grossly bloody at this time. He states he has seen a urologist in the past, believes he had cystoscopy about a year ago. In light of this new blood and nitrite positive specimen, I do suspect infection may be the etiology of this hematuria, but I explained to the patient it is vital that he follows up with his primary care provider to make sure the blood resolves, and perhaps with urology for further evaluation. He does have risk factors for bladder cancer given his smoking status. He voiced understanding to this. As he is on Coumadin, with hematuria, I am not inclined to put him on an antibiotic which will increase his INR. He is given some Rocephin here, will send him home on a week of Keflex. Otherwise he is not tachycardic, he does not have a significant leukocytosis, has no nausea or vomiting, I believe he is an appropriate candidate for outpatient management at this time. He is to return to the ED with worsening or new concerning symptoms of any sort. - Vital Signs Vital signs: Temp Pulse Resp BP Pulse Ox 97.8 F 86 20 151/63 H 97 07/04/19 15:38 07/04/19 15:38 07/04/19 15:38 07/04/19 15:38 07/04/19 15:38 - Laboratory Result Diagrams: 07/04/19 16:14 07/04/19 16:14 Laboratory results interpreted by me: 07/04/19 07/04/19 07/04/19 16:14 16:14 16:14 RBC 3.53 L Hgb 11.4 L Hct 33.8 L Eos % (Auto) 7.3 H PT 26.1 H BUN 25 H Glucose 111 H Urine Blood Urine Nitrite Urine Urobilinogen Ur Leukocyte Esterase 07/04/19 17:26 RBC Hgb Hct Eos % (Auto) PT BUN Glucose Urine Blood MODERATE H Urine Nitrite POSITIVE H Urine Urobilinogen 2.0 H Ur Leukocyte Esterase MODERATE H - Diagnostic Test Radiology reviewed: Reports reviewed Radiology results interpreted by me: 07/04/19 20:16 Renal Ultrasound 07/04/19 16:08 IMPRESSION: Normal sonographic appearance of the kidneys. Nonvisualization of the bladder due to obscuration by intervening bowel gas. Discharge - Discharge Clinical Impression: History of gross hematuria, Left flank contusion Urinary tract infection Qualifiers: Urinary tract infection type: site unspecified Hematuria presence: with hematuria Qualified Code(s): N39.0 - Urinary tract infection, site not specified; R31.9 - Hematuria, unspecified Condition: Stable Disposition: HOME, SELF-CARE Instructions: Cephalexin ([facility]), Urinary Tract Infection ([facility]), Contusion ([facility]) Additional Instructions: Take all of the antibiotic as prescribed, starting tomorrow morning. Use Tylenol as you need it for the flank pain. Follow-up with your primary care provider to make sure that the blood in your urine is cleared up. If it does not, it is vital that you are followed up by urology for further evaluation. If you develop fevers, vomiting, increased pain, difficulty urinating, or any other new or concerning symptoms, please return immediately to the emergency department for reevaluation. Referrals: TATIANA PARK, [Primary Care Provider] - Follow up as needed
[2019-07-04 20:45] VITALS: BP 160/67
== END 2019-07-04 21:02 | disposition home or self-care (01) ==
LOC: ER 15:34
DX: N39.0 Urinary tract infection, site not specified (principal); R31.9 Hematuria, unspecified; S30.1XXA Contusion of abdominal wall, initial encounter; W19.XXXA Unspecified fall, initial encounter; F17.200 Nicotine dependence, unspecified, uncomplicated; I25.10 Atherosclerotic heart disease of native coronary artery without angina pectoris; I10 Essential (primary) hypertension; J44.9 Chronic obstructive pulmonary disease, unspecified; I48.92 Unspecified atrial flutter; Z79.01 Long term (current) use of anticoagulants; Z95.2 Presence of prosthetic heart valve; Z85.46 Personal history of malignant neoplasm of prostate; Z95.5 Presence of coronary angioplasty implant and graft; Z95.1 Presence of aortocoronary bypass graft
CPT/HCPCS: 99284; 96372; 36415; 87086; 85025; 85610; 87088; 80053; 81001; 87186; 76770; J0696

== ENCOUNTER 2019-08-17 12:03 | Emergency (ER) | payer MEDICARE, OTHER ==
[2019-08-17] MEDS ORDERED: NORMAL SALINE 1000 ML 1,000 ML IV ONE (15:12)
[2019-08-17 15:40] LABS: ABSOLUTE BASOPHILS # (AUTO) 0.1 10^3/uL (0.0-0.2); ABSOLUTE EOSINOPHILS # (AUTO) 0.4 10^3/uL (0.0-0.6); ABSOLUTE LYMPHOCYTES (AUTO) 1.6 10^3/uL (0.5-4.7); ABSOLUTE MONOCYTES (AUTO) 0.6 10^3/uL (0.1-1.4); ABSOLUTE NEUT (AUTO) 5.3 10^3/uL (1.7-8.2); BASOPHILS % (AUTO) 0.7 % (0-2); EOSINOPHILS % (AUTO) 4.7 % (0-6); HEMATOCRIT 33.8 % (37.9-51.0); HEMOGLOBIN 11.7 g/dL (13.5-17.0); LYMPHOCYTES % (AUTO) 19.6 % (13-45); MEAN CORPUSCULAR HEMOGLOBIN 32.8 pg (27.0-33.4); MEAN CORPUSCULAR HGB CONC 34.7 g/dL (32.0-36.0); MEAN CORPUSCULAR VOLUME 95 fl (80-97); MONOCYTES % (AUTO) 8.1 % (3-13); PLATELET COUNT 147 10^3/uL (150-450); RED BLOOD COUNT 3.57 10^6/uL (4.35-5.55); RED CELL DISTRIBUTION WIDTH 14.3 % (11.5-14.0); SEGMENTED NEUTROPHILS % (AUTO) 66.9 % (42-78); TOTAL CELLS COUNTED % (AUTO) 100 %; WHITE BLOOD COUNT 7.9 10^3/uL (4.0-10.5)
--- NOTE | 2019-08-17 15:43 | ER Document Report ---
ED General - General Chief Complaint: Rib Pain Stated Complaint: FALL/RIB PAIN Time Seen by Provider: 08/17/19 15:05 Primary Care Provider: TATIANA PARK DO [Primary Care Provider] - Follow up as needed TRAVEL OUTSIDE OF THE [place] IN LAST 30 DAYS: No - HPI Notes: Patient is a 73-year-old male with a known history of atrial fibrillation/flutter, anticoagulated on Coumadin, who presents to the emergency department for evaluation after a fall. The patient is a difficult historian. He states his leg gives out on him occasionally, he has frequent falls. He states that he fell a few days ago, he also fell earlier today. At one point he did hit his head, but denies loss of consciousness. He is unclear as to whether or not this was the fall today or several days ago. He also complains of pain in his right flank, states he injured himself in that area as well. He denies any gross hematuria. He is had intermittent vision difficulty for some time, but states that they are stable at this time. Eating and drinking normally. No other acute complaints or concerns. He puts his pain in his flank at a 1 out of 5 at rest, states it becomes significantly worse with palpation. He has not tried any medications to make it better. - Related Data Allergies/Adverse Reactions: No Known Allergies Allergy (Verified 08/17/19 12:23) Home Medications: Esomeprazole mag; Flomax 0.4mg daily; asprin 81mg daily; Metoprolol 25mg daily; warfrin 4mg M/W/F and 8mg; SS/T/TR; Lipitor 80mg daily Past Medical History - General Information source: Patient - Social History Smoking Status: Current Every Day Smoker Chew tobacco use (# tins/day): No Drug Abuse: None Family History: Reviewed & Not Pertinent, CAD, Hypertension Patient has suicidal ideation: No Patient has homicidal ideation: No - Past Medical History Cardiac Medical History: Reports: Hx Atrial Fibrillation, Hx Coronary Artery Disease, Hx Heart Attack, Hx Hypercholesterolemia, Hx Hypertension - MEDICATED Denies: Hx Congestive Heart Failure, Hx Peripheral Vascular Disease, Hx Heart Murmur Pulmonary Medical History: Reports: Hx COPD Denies: Hx Asthma Neurological Medical History: Denies: Hx Cerebrovascular Accident, Hx Seizures Renal/ Medical History: Denies: Hx Peritoneal Dialysis Malignancy Medical History: Reports Hx Prostate Cancer GI Medical History: Reports: Hx Gastroesophageal Reflux Disease. Denies: Hx Hepatitis, Hx Hiatal Hernia, Hx Ulcer Musculoskeletal Medical History: Reports Hx Arthritis, Denies Hx Fibromyalgia, Denies Hx Muscular Dystrophy, Reports Hx Musculoskeletal Trauma Skin Medical History: Reports Hx Cellulitis, Reports Hx MRSA Traumatic Medical History: Reports: Hx Fractures Infectious Medical History: Denies: Hx Hepatitis Past Surgical History: Reports: Hx Cardiac Surgery - bypass, stents, mechanical valve, Hx Carotid Endarterectomy, Hx Cholecystectomy - states still has gall bladder, Hx Coronary Artery Bypass Graft, Hx Open Heart Surgery - 1998 VALVE REPLACEMENT, Hx Orthopedic Surgery - left hip. Denies: Hx Appendectomy, Hx Bowel Surgery, Hx Gastric Bypass Surgery, Hx Herniorrhaphy, Hx Pacemaker, Hx Tonsillectomy - Immunizations Immunizations up to date: Yes Hx Diphtheria, Pertussis, Tetanus Vaccination: Yes Hx Pneumococcal Vaccination: 08/06/10 Review of Systems - Review of Systems Constitutional: No symptoms reported EENT: No symptoms reported Cardiovascular: No symptoms reported Respiratory: No symptoms reported Gastrointestinal: See HPI Genitourinary: See HPI Male Genitourinary: No symptoms reported Musculoskeletal: See HPI Hematologic/Lymphatic: No symptoms reported Physical Exam - Vital signs Vitals: Temp Pulse Resp BP Pulse Ox 97.8 F 64 20 139/62 H 100 08/17/19 12:10 08/17/19 12:10 08/17/19 12:10 08/17/19 12:10 08/17/19 12:10 - Notes Notes: This is a mildly disheveled 73-year-old male who appears his stated age in no acute distress. Vital signs reviewed, please refer to chart. Head is normocephalic, atraumatic. Pupils equal round, reactive to light. Oral mucosa is moist, uvula is midline. Neck is supple without meningismus. He has no midline cervical tenderness, no paraspinal musculature tenderness is appreciated. Heart is regular rate and rhythm. Lungs are clear to auscultation bilaterally. Chest wall excursion is equal bilaterally, no crepitance, no rib tenderness noted. Abdomen is soft, moderately tender in the right upper and mid abdomen without rebound or guarding, normoactive bowel sounds throughout. He does have right flank ecchymosis which appears to be healing. Extremities without cyanosis, clubbing. Posterior calves are nontender. Peripheral pulses are equal. Skin is warm and dry. Patient is awake, alert, oriented x3. Cranial nerves II - XII are grossly intact without focal neurological deficits. Strength is plus 5 out of 5 bilateral upper and lower extremities. Sensation is intact. Reflexes symmetrical. Intact [id number], rapid alternating movements, [id number]. Course - Re-evaluation Re-evalutation: 08/17/19 15:42 Patient presents emergency department for evaluation. He is not anticoagulated patient he was not a good historian, presents after a fall. CT scan of the head and abdomen pelvis were ordered. Because of this traumatic nature, I did not wait for labs. I did review his last creatinine which was unremarkable. Awaiting blood work. Patient is stable, we will continue to monitor. 08/17/19 16:19 Patient's laboratory investigations revealed a therapeutic INR, no significant changes in hemoglobin, stable kidney function. CT scans of the head, as well as the abdomen pelvis, are unremarkable for any acute findings. Patient has frequent falls, have seen him for falls in the past. He is already anticoagulated. He asks about something for pain, but I do not feel comfortable giving this elderly gentleman narcotic medications at this time. He is encouraged to try Tylenol at home, which he has not tried as of yet. Otherwise, he is to follow-up with his primary care provider this week, continue his home medications as prescribed, and return to the ED with worsening or new concerning symptoms of any sort. - Vital Signs Vital signs: Temp Pulse Resp BP Pulse Ox 97.8 F 61 17 150/59 H 90 L 08/17/19 13:47 08/17/19 13:47 08/17/19 16:01 08/17/19 16:01 08/17/19 16:01 - Laboratory Result Diagrams: 08/17/19 15:17 08/17/19 15:17 Laboratory results interpreted by me: 08/17/19 08/17/19 08/17/19 15:17 15:17 15:17 RBC 3.57 L Hgb 11.7 L Hct 33.8 L RDW 14.3 H Plt Count 147 L PT 26.4 H BUN 28 H - Diagnostic Test Radiology reviewed: Reports reviewed Radiology results interpreted by me: 08/17/19 16:18 Abdomen/Pelvis CT 08/17/19 15:10 IMPRESSION: 1. No acute abnormality to explain the patient's symptoms. 2. Chronic bilateral common iliac artery aneurysms are stable from prior examination. No aortic aneurysm. No evidence of impending rupture. 3. Mild hepatic steatosis. 4. Severe pulmonary emphysema. 5. Colonic diverticulosis without evidence of diverticulitis. Head CT 08/17/19 15:11 IMPRESSION: 1. No acute intracranial hemorrhage, mass, or evidence of acute territorial infarct. 2. Chronic right maxillary sinusitis. EVIDENCE OF ACUTE STROKE: NO. Discharge - Discharge Clinical Impression: Hematoma of right flank Qualifiers: Encounter type: initial encounter Qualified Code(s): S30.1XXA - Contusion of abdominal wall, initial encounter Closed head injury Qualifiers: Encounter type: initial encounter Qualified Code(s): S09.90XA - Unspecified injury of head, initial encounter Condition: Stable Disposition: HOME, SELF-CARE Instructions: Hematoma ([facility]) Additional Instructions: Tylenol as needed for pain. Follow-up with your primary care provider this week. Return to the emergency department with worsening or new concerning symptoms of any sort. Referrals: TATIANA PARK, [Primary Care Provider] - Follow up as needed
[2019-08-17 15:46] LABS: INTERNATIONAL RATION (INR) 2.38; PROTHROMBIN TIME 26.4 SEC (11.4-15.4)
[2019-08-17 15:53] LABS: ALBUMIN 4.3 g/dL (3.5-5.0); ALKALINE PHOSPHATASE 87 U/L (38-126); ANION GAP 8 (5-19); ASPARTATE AMINO TRANSFERASE 33 U/L (17-59); BILIRUBIN,DIRECT 0.3 mg/dL (0.0-0.4); BILIRUBIN,TOTAL 0.8 mg/dL (0.2-1.3); BLOOD UREA NITROGEN 28 mg/dL (7-20); CALCIUM 9.4 mg/dL (8.4-10.2); CARBON DIOXIDE 29 mmol/L (22-30); CHLORIDE 102 mmol/L (98-107); GLUCOSE 85 mg/dL (75-110); POTASSIUM 4.9 mmol/L (3.6-5.0); TOTAL PROTEIN 7.7 g/dL (6.3-8.2)
--- NOTE | 2019-08-17 15:55 | RADIOLOGY REPORT (SQ) ---
EXAM DESCRIPTION: CT HEAD WITHOUT COMPLETED DATE/TIME: 08/17/2019 2:38 pm REASON FOR STUDY: fall, coumadin COMPARISON: None. TECHNIQUE: Axial images acquired through the brain without intravenous contrast. Images reviewed wi th bone, brain and subdural windows. Images stored on PACS. All CT scanners at this facility use dose modulation, iterative reconstruction, and/or weight based d osing when appropriate to reduce radiation dose to as low as reasonably achievable (ALARA). [facility]: Dose Right [facility]: CareDose [facility]: Dose Right [facility]: Teradose 4D [facility]: Smart Roovyn RADIATION DOSE: CT Rad equipment meets quality standard of care and radiation dose reduction techniq ues were employed. CTDIvol: 53.2 mGy. DLP: 911 mGy-cm. mGy. LIMITATIONS: None. FINDINGS: VENTRICLES: Normal size and contour. CEREBRUM: No masses. No hemorrhage. No midline shift. No evidence for acute infarction. Normal gra y/white matter differentiation. No areas of low density in the white matter. CEREBELLUM: No masses. No hemorrhage. No alteration of density. No evidence for acute infarction. EXTRAAXIAL SPACES: No fluid collections. No masses. ORBITS AND GLOBE: No intra- or extraconal masses. Normal contour of globe without masses. CALVARIUM: No fracture. PARANASAL SINUSES: Mucosal thickening and polypoid mucosal thickening in the right maxillary sinus. No air-fluid levels. Remaining paranasal sinuses and mastoid air cells are clear. SOFT TISSUES: No mass or hematoma. OTHER: No other significant finding. IMPRESSION: 1. No acute intracranial hemorrhage, mass, or evidence of acute territorial infarct. 2. Chronic right maxillary sinusitis. EVIDENCE OF ACUTE STROKE: NO. COMMENT: Quality ID # [id number]: Final reports with documentation of one or more dose reduction techniques (e.g., Automated exposure control, adjustment of the mA and/or kV according to patient size, use of iterative reconstruction technique) TECHNICAL DOCUMENTATION: JOB ID: [id number]- All Rights Reserved Reading location - IP/workstation name: [email or web address]
--- NOTE | 2019-08-17 16:10 | RADIOLOGY REPORT (SQ) ---
EXAM DESCRIPTION: CT ABD/PELVIS WITH IV ONLY COMPLETED DATE/TIME: 08/17/2019 2:38 pm REASON FOR STUDY: fall, flank bruising, on coumadin right upper and lower quadrant pain. COMPARISON: 05/15/2017. TECHNIQUE: CT scan of the abdomen and pelvis performed using helical scanning technique with dynamic intravenous contrast injection. No oral contrast. Images reviewed with lung, soft tissue, and bone windows. Reconstructed coronal and sagittal MPR images reviewed. Delayed images for evaluation of the urinary system also acquired. All images stored on PACS. All CT scanners at this facility use dose modulation, iterative reconstruction, and/or weight based d osing when appropriate to reduce radiation dose to as low as reasonably achievable (ALARA). [facility]: Dose Right [facility]: CareDose [facility]: Dose Right [facility]: Teradose 4D [facility]: ImpulseSave CONTRAST TYPE AND DOSE: contrast/concentration: Isovue 350.00 mg/ml; Total Contrast Delivered: 73.0 ml; Total Saline Delivered: 66.0 ml RENAL FUNCTION: GFR > 60. RADIATION DOSE: CT Rad equipment meets quality standard of care and radiation dose reduction techniq ues were employed. CTDIvol: 9.6 - 14.4 mGy. DLP: 1364 mGy-cm.. LIMITATIONS: None. FINDINGS: LOWER CHEST: Background severe pulmonary emphysema at the lung bases. No focal consolidat ion or pleural effusion. LIVER: Liver has normal size and contour. No focal hepatic mass. Mild hepatic steatosis. Hepatic a nd portal veins are patent. No intrahepatic or extrahepatic biliary ductal dilation. SPLEEN: Normal size. No focal lesions. PANCREAS: No masses. No significant calcifications. No adjacent inflammation or peripancreatic fluid collections. Pancreatic duct not dilated. GALLBLADDER: Gallstone within the gallbladder lumen. The gallbladder is contracted. No gallbladder wall thickening or pericholecystic fluid. ADRENAL GLANDS: No significant masses or asymmetry. RIGHT KIDNEY AND URETER: No solid masses. Extensive renal vascular calcifications. No renal or ure teral calculi are identified. No hydronephrosis. No perinephric fluid. Ureters have normal caliber and appearance. LEFT KIDNEY AND URETER: No solid masses. Extensive renal vascular calcifications. No obstructing o r nonobstructing renal or ureteral calculi. No hydronephrosis. No perinephric fluid. Ureters have normal caliber and appearance. AORTA AND VESSELS: The abdominal aorta has normal caliber. Bi-iliac stent graft with bypass graft on the right. Chronic thrombosed right nulato internal and external iliac arteries, stable from prior. There is a persistent right common iliac artery aneurysm measuring 2.2 cm at the level of the bifur cation of the right internal and external iliac artery, at the level of the bypass graft insertion. There is a 2.9 cm left common iliac artery aneurysm, stable. No dissection or plaque ulceration. Th ere is poor opacification of the internal iliac arteries bilaterally, probably chronic occlusion. No rmal opacification bilateral external iliac arteries. No periaortic fluid. RETROPERITONEUM: No retroperitoneal adenopathy, hemorrhage or masses. BOWEL AND PERITONEAL CAVITY: Colonic diverticulosis without evidence of diverticulitis. There is a m oderate amount of stool throughout the colon. No bowel obstruction. No bowel wall thickening. No s ignificant inflammatory change. APPENDIX: Normal. PELVIS: No mass. No free fluid. Normal bladder. ABDOMINAL WALL: No masses. No hernias. BONES: Spondylosis and degenerative disc disease in the thoracolumbar spine. Partial visualization l eft hip arthroplasty. No suspicious bone lesions. OTHER: No other significant finding. IMPRESSION: 1. No acute abnormality to explain the patient's symptoms. 2. Chronic bilateral common iliac artery aneurysms are stable from prior examination. No aortic aneu rysm. No evidence of impending rupture. 3. Mild hepatic steatosis. 4. Severe pulmonary emphysema. 5. Colonic diverticulosis without evidence of diverticulitis. TECHNICAL DOCUMENTATION: JOB ID: [id number] Quality ID # [id number]: Final reports with documentation of one or more dose reduction techniques (e.g., Au tomated exposure control, adjustment of the mA and/or kV according to patient size, use of iterative reconstruction technique) 2010 [employer]- All Rights Reserved Reading location - IP/workstation name: [email or web address]
[2019-08-17 16:18] LABS: APPEARANCE,URINE SLIGHTLY-CLOUDY; BILIRUBIN,URINE NEGATIVE (NEGATIVE); COLOR,URINE YELLOW; GLUCOSE, URINE NEGATIVE (NEGATIVE); KETONES,URINE NEGATIVE (NEGATIVE); LEUKOCYTE ESTERASE,URINE TRACE (NEGATIVE); NITRITE,URINE NEGATIVE (NEGATIVE); PROTEIN,URINE NEGATIVE (NEGATIVE); URINE SPECIFIC GRAVITY 1.023; UROBILINOGEN,URINE NEGATIVE mg/dL (<2.0)
[2019-08-17 16:47] VITALS: BP 146/59
== END 2019-08-17 16:47 | disposition home or self-care (01) ==
LOC: ER 12:03
DX: S30.1XXA Contusion of abdominal wall, initial encounter (principal); S09.90XA Unspecified injury of head, initial encounter; R07.81 Pleurodynia; W19.XXXA Unspecified fall, initial encounter; Z91.81 History of falling; F17.200 Nicotine dependence, unspecified, uncomplicated; I48.91 Unspecified atrial fibrillation; Z79.01 Long term (current) use of anticoagulants
CPT/HCPCS: 99284; 96360; 36415; 87086; 85025; 85610; 87088; 80053; 81001; 87186; 70450; 74177; J7030